=== PATIENT | female | born 1995 | race Hispanic/Latino ===

== ENCOUNTER 2020-07-11 01:44 | Emergency (ER) | payer OTHER, SELFPAY ==
[2020-07-11 01:55] VITALS: BP 131/60; PULSE 74; RESP 16; TEMP 36.6; O2SAT 98; BMI 23.4
[2020-07-11 02:06] LABS: Bilirubin Urine UA NEGATIVE (NEGATIVE); Color Urine UA YELLOW; Glucose Urine UA NEGATIVE (Negative); Ketones Urine UA NEGATIVE (NEGATIVE); Leukocyte Esterase Urine UA 1+ (NEGATIVE); Nitrite Urine UA NEGATIVE (Negative); Occult Blood Urine UA 3+ (Negative); Protein Urine UA NEGATIVE (Negative); Specific Gravity Urine UA <=1.005 (1.000-1.035); Urobilinogen Urine UA 0.2 E.U./dL (0.2)
[2020-07-11 02:07] LABS: pH Urine UA 5.5 (4.5-8.0)
[2020-07-11 02:08] LABS: Appearance Urine UA Slightly Cloudy
--- NOTE | 2020-07-11 02:08 | ED.FEMALEGU ---
HPI - Female Genitourinary General Chief complaint: Urogenital-Female Stated complaint: thinks she has a UTI Time Seen by Provider: 07/11/20 02:08 Source: patient Mode of arrival: Ambulatory Limitations: no limitations History of Present Illness HPI Narrative: 24-year-old woman presents with 3 days of dysuria and urgency as well as frequency. She started to note a small amount of blood this evening. She comes in concerned with possibility of urinary tract infection. She additionally notes that she is having some left-sided deep pelvic pain with sexual activity particularly with deep penetration. It does not bother her otherwise. She currently is on no formal control but reports that she frequently uses plan B . Related Data Previous Rx's Medication Instructions Recorded sulfamethoxazole-trimethoprim 1 tab PO BID #10 tab 07/11/20 [Bactrim DS] Allergies Allergy/AdvReac Type Severity Reaction Status Date / Time No Known Drug Allergies Allergy Verified 07/11/20 02:28 Review of Systems Review of Systems Narrative: Pertinent positive and negative findings as per HPI Remainder of review of systems is otherwise unremarkable for Constitutional: Fevers, chills, weakness ENT: No sore throat, neck pain, ear pain CV: Chest pain, palpitations Respiratory: Cough, wheeze, dyspnea GI: Nausea, vomiting, diarrhea, Patient History tobacco type: cigarettes Substance Use Type: does not use Exam Narrative Exam Narrative: General: Alert appropriate in no acute distress Respiratory: Able to speak in full sentences, no obvious respiratory distress Skin: No obvious rashes, warm and dry Abdomen: No pain with palpation, good bowel tones, no flank pain Neurologic: Grossly intact no obvious asymmetries or abnormalities Psych, appropriate insight and affect, cooperative Initial Vital Signs Initial Vital Signs: Vital Signs Temperature 97.8 F 07/11/20 01:55 Pulse Rate 74 07/11/20 01:55 Respiratory Rate 16 07/11/20 01:55 Blood Pressure 131/60 07/11/20 01:55 Pulse Oximetry 98 07/11/20 01:55 Course Orders Ordered: ED Orders 07/11/20 02:03 Urinalysis Screen (Dip Only) Stat Urine Culture Stat Urine Microscopic Stat Discontinued Medications Trimethoprim/Sulfamethoxazole (Trimeth/Sulfa 160/800 (Ds) Tablet) 1 tab PO NOW ONE Stop: 07/11/20 02:26 Vital Signs Vital signs: Vital Signs - 8 hr 07/11/20 01:55 Temperature 97.8 F Pulse Rate 74 Respiratory Rate 16 Blood Pressure 131/60 Pulse Oximetry 98 MDM - Female Genitourinary Lab Data Attestation: I reviewed the patient's lab results. Labs: Lab Results 07/11/20 Range/Units 02:03 Urine Color Yellow Urine Appearance Slightly cloudy Urine pH 5.5 (4.5-8.0) Ur Specific [place] <=1.005 (1.000-1.035) Urine Protein Negative (Negative) Urine Glucose (UA) Negative (Negative) g/dL Urine Ketones Negative (NEGATIVE) Urine Occult Blood 3+ H (Negative) Urine Nitrate Negative (Negative) Urine Bilirubin Negative (NEGATIVE) Urine Urobilinogen 0.2 (0.2) E.U./dL Ur Leukocyte Esterase 1+ H (NEGATIVE) Urine RBC 1-5/hpf (0-5/HPF) Urine WBC 5-10/hpf H (0-5/HPF) Urine Bacteria Occasional (0-1) (None) Ur Culture Indicated? Specimen cultured Point of Care Testing Test Results Negative Urine Dip Bedside Urine Glucose Negative Bedside Urine Bilirubin - Negative Bedside Urine Ketone - Negative Urine Specific [place] 1.015 Bedside Urine Occult Blood +++ Bedside Urine pH 6 Bedside Urine Protein - Negative Bedside Urine Urobilinogen - Negative Bedside Urine Leukocytes + 70 Esterase MDM Narrative Medical decision making narrative: 24-year-old with 3 days of burning, frequency and mild hematuria. Urinalysis does have some leukocytes as well as red blood cells. Will treat her with Septra b.i.d. for 5 days. She currently is sexually active and not using any form of control and not wanting to be . She notes that she is using Plan B regularly. [place]. She also complains of left-sided ovarian pain with intercourse and deep penetration. Encour[place] Discharge Plan Departure Patient Disposition: Home Clinical Impression: Urinary tract infection Qualifiers: Urinary tract infection type: acute cystitis Hematuria presence: with hematuria Qualified Code(s): N30.01 - Acute cystitis with hematuria Instructions: DI for Urinary Tract Infection (UTI) Activity Restrictions/Additional Instructions: Thank you for coming in today It does look like you have a bladder infection to explain the burning and urinary frequency Regarding the pain in the left side of your pelvis, talking to your Family Practice her OBGYN provider as an outpatient would be most appropriate. They may recommend an ultrasound to see if you do in fact have another ovarian cyst. While you are median without provider, please make sure you discussed control options. Plan B is, by definition, emergency contraception and should not be used regularly. Please consider using condoms. Additional [id number] options include spermicidal jelly to use with the condoms. The Today Sponge is another obqa-ocv-[id number] control method did that you can consider until your able talk to your doctor and find a more reliable method for you. Prescriptions: New sulfamethoxazole-trimethoprim [Bactrim DS] 800-160 mg tablet 1 tab PO BID Qty: 10 RF: 0
[2020-07-11 02:13] LABS: Bacteria Urine Occasional (0-1); RBC Urine 1-5/HPF (0-5/HPF); WBC Urine 5-10/HPF (0-5/HPF)
[2020-07-11 02:14] LABS: Culture Indicated Urine Specimen Cultured
[2020-07-11] MEDS: TRIMETH/SULFA 160/800 (DS) TABLET 1 TAB PO (02:28)
== END 2020-07-11 02:30 | disposition home or self-care (01) ==
PROVIDERS: Emergency Provider Emergency Medicine
DX: N30.01 Acute cystitis with hematuria (principal)
CPT/HCPCS: 81003; 81015; 81025; 87077; 87086; 87186; 99282; 99283

== ENCOUNTER 2021-06-19 19:28 | Emergency (ER) | payer OTHER, SELFPAY ==
[2021-06-19 19:30] VITALS: BP 124/65; PULSE 70; RESP 18; TEMP 36.7; O2SAT 99
--- NOTE | 2021-06-19 22:57 | ED.GENADULT ---
HPI - General Adult General Chief complaint: Upper Respiratory Symptoms Stated complaint: swollen tonsil Time Seen by Provider: 06/19/21 22:51 Source: patient Mode of arrival: Ambulatory History of Present Illness HPI narrative: 25-year-old female who is here for evaluation of painful swallowing and swollen tonsils. A couple months ago she was seen at a outside [place] where [place] stated that they tested her for strep throat. Was negative however they treated her with fluids and steroids and antibiotics and her symptoms improved. She returns today for continued symptoms. She is otherwise healthy. Has not tried anything for the symptoms prior to arrival. No fevers. She does have a cough. Is able to swallow and tolerate her secretions Related Data Previous Rx's Medication Instructions Recorded sulfamethoxazole 800 1 tab PO BID #10 tab 07/11/20 mg-trimethoprim 160 mg tablet (Bactrim DS) Allergies Allergy/AdvReac Type Severity Reaction Status Date / Time No Known Drug Allergies Allergy Verified 07/11/20 02:28 Review of Systems Constitutional Constitutional: Denies fever(s) ENT Ears, Nose, Mouth, and Throat: Reports system reviewed and no additional complaints, except as documented and Reports as per HPI Integumentary/Breasts Skin/Breast: Reports system reviewed and no additional complaints, except as documented Hematologic/Lymphatic On Anticoagulants: No Allergic/Immunologic Allergic/Immunologic: Reports system reviewed and no additional complaints, except as documented Patient History Medical History Healthy adult Social History Smoking Status: Current every day smoker Smoking Status: Current every day smoker tobacco type: cigarettes Substance Use Type: does not use Exam Initial Vital Signs Initial Vital Signs: Vital Signs Temperature 98.1 F 06/19/21 19:30 Pulse Rate 70 06/19/21 19:30 Respiratory Rate 18 06/19/21 19:30 Blood Pressure 124/65 06/19/21 19:30 Pulse Oximetry 99 06/19/21 19:30 Const General: cooperative and comfortable HENMT Head: normal to inspection and normocephalic Mouth: oral mucosae normal and moist mucous membranes Teeth and gingiva: dentition normal Throat: uvula midline, abnormal tonsil bilaterally erythema and exudates, no peritonsillar masses and no uvular edema Resp Effort & Inspection: normal respiratory effort Cardio Rate: regular rate Neuro General: patient alert, patient awake and moves all extremities Extrem General: normal to inspection and capillary refill normal Psych Appearance: grossly normal and well kempt Course Orders Ordered: Discontinued Medications Dexamethasone (Dexamethasone 4 Mg Tablet) 12 mg PO NOW ONE Stop: 06/19/21 22:58 Last Admin: 06/19/21 23:02 Dose: 12 mg Documented by: JAELYN Vital Signs Vital signs: Vital Signs - 8 hr 06/19/21 23:22 Pulse Rate 70 Respiratory Rate 16 Blood Pressure 125/65 Pulse Oximetry 99 Medical Decision Making Lab Data Labs: Point of Care Testing Rapid Strep A Negative Point of care testing: Point of Care Testing Rapid Strep A Negative MDM Narrative Medical decision making narrative: Rapid strep was negative. Throat culture was pending at the time of discharge. No indication for antibiotics. Was given a dose of steroids to try to help with her symptoms. Had a discussion with her regarding her symptoms. Informed her that if she continues to have issues with pharyngitis that a referral for her to see ENT would be warranted however this would place by her primary provider. She was given return precautions and follow-up instructions. She expressed understanding and agreement. Discharge Plan Departure Patient Disposition: Home Clinical Impression: Pharyngitis Instructions: Sore Throat Activity Restrictions/Additional Instructions: Your rapid strep today was negative. There was a throat culture that was drawn and will take couple days to result. We will contact you we need to start any antibiotics. I do recommend you talk with your medical department especially if your symptoms continue. Return to the emergency department for any new symptoms. Prescriptions: No Action sulfamethoxazole-trimethoprim [Bactrim DS] 800-160 mg tablet 1 tab PO BID Qty: 10 0RF
[2021-06-19] MEDS: dexAMETHasone 4 MG TABLET 12 MG PO (23:02)
[2021-06-19 23:22] VITALS: BP 125/65; PULSE 70; RESP 16; O2SAT 99
== END 2021-06-19 23:22 | disposition home or self-care (01) ==
PROVIDERS: Emergency Provider Emergency Medicine
DX: J02.9 Acute pharyngitis, unspecified (principal); F17.210 Nicotine dependence, cigarettes, uncomplicated
CPT/HCPCS: 87070; 87880; 99283

== ENCOUNTER 2021-07-03 01:01 | Emergency (ER) | payer OTHER, SELFPAY ==
[2021-07-03 01:11] VITALS: BP 142/87; PULSE 87; RESP 16; TEMP 36.8; O2SAT 99; BMI 24.2
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
[2021-07-03] MEDS: CYCLOBENZAPRINE 10 MG PREPACK 1 BOTTLE MISC (01:35)
[2021-07-03] MEDS: KETOROLAC 30 MG/ML VIAL IM (01:35)
== END 2021-07-03 01:56 | disposition home or self-care (01) ==
PROVIDERS: Emergency Provider Emergency Medicine
DX: S39.012A Strain of muscle, fascia and tendon of lower back, initial encounter (principal); F17.210 Nicotine dependence, cigarettes, uncomplicated; V89.2XXA Person injured in unspecified motor-vehicle accident, traffic, initial encounter
CPT/HCPCS: 96372; 99283; J1885

== ENCOUNTER 2021-08-07 11:01 | Emergency (ER) | payer OTHER, SELFPAY ==
[2021-08-07 11:43] VITALS: BP 116/73; PULSE 70; RESP 18; TEMP 37; O2SAT 99; BMI 24.2
[2021-08-07 14:10] VITALS: PULSE 68; O2SAT 97
[2021-08-07 14:13] VITALS: BP 129/86; PULSE 68; RESP 18; TEMP 36.7; O2SAT 98
[2021-08-07 14:30] VITALS: PULSE 70; O2SAT 97
--- NOTE | 2021-08-07 14:42 | DI.US.S_ITS ---
PROCEDURE: US PELVIC COMPLETE INDICATIONS: PAIN TECHNIQUE: Real-time scanning was performed of the pelvic organs, with image documentation. Additional endovaginal scanning was necessary due to incomplete visualization of the adnexal and endometrial structures by transabdominal scanning. COMPARISON: None. FINDINGS: Uterus: Uterus is anteverted and normal in size at 7.0 x 3.3 x 4.1 cm. The myometrium is homogeneous. The endometrium measures 3 mm combined thickness. Ovaries: The right ovary measures 1.7 x 1.1 x 2.2 cm and the left ovary measures 2.9 x 1.9 x 2.6 cm cm. Incidental note of a 1.5 cm dominant left ovarian follicle. The ovaries have a normal sonographic appearance. No adnexal masses are seen. Other: No pathologic free abdominal or pelvic fluid. IMPRESSION: Pelvic ultrasound without acute sonographic abnormalities. We strive to produce accurate, complete, and clear reports of imaging services. To assist us in improving patient care, this report was composed using standard report templates and voice recognition software. Therefore, it may contain abnormal punctuation, insertions and/or omissions. Occasional wrong-word or sound-alike substitutions may occur. Though we review the report and make efforts to correct it, we do recommend that the report be read carefully in proper context to recognize any text inaccuracies. Dictated by: Zach Acosta M.D. on 08/07/2021 at 15:19 Approved by: Zach Acosta M.D. on 08/07/2021 at 15:21
--- NOTE | 2021-08-07 14:59 | ED_ITS ---
HPI - Abdominal Pain <MYRTLE Herman - Last Filed: 08/07/21 16:39> General Chief Complaint: Abdominal Pain Stated Complaint: lower left abd pain, spread to overall Time Seen by Provider: 08/07/21 14:26 Source: patient Mode of arrival: Ambulatory History of Present Illness HPI narrative: 26-year-old female who is sexually active presents to the emergency department complaining pelvic pain for 1 week. She endorses dyspareunia, feeling of stool in her rectum after defecation, bilateral pelvic pain but worse over the left. She denies any fever, endorses nausea without vomiting, states last menstrual period was end of June 2021, and she endorses this pain is similar to the last time she had this pain in 2019. On chart review it appears that she had a UTI at that time which grew out E coli and it was resistant to Bactrim and her antibiotic was changed after starting on Bactrim. Patient denies any stool changes, states she is having normal daily BMs, denies dysuria but states she has pelvic pain when she defecates and to palpation. Related Data Previous Rx's Medication Instructions Recorded cefdinir 300 mg capsule 300 mg PO BID 7 Days #14 cap 08/07/21 Allergies Allergy/AdvReac Type Severity Reaction Status Date / Time No Known Drug Allergies Allergy Verified 07/11/20 02:28 Patient History <MYRTLE Herman - Last Filed: 08/07/21 16:39> Medical History Healthy adult Social History Smoking Status: Current every day smoker Smoking Status: Current every day smoker tobacco type: cigarettes Substance Use Type: does not use Exam <MYRTLE Herman - Last Filed: 08/07/21 16:39> Initial Vital Signs Initial Vital Signs: Vital Signs Temperature 98.6 F 08/07/21 11:43 Pulse Rate 70 08/07/21 11:43 Respiratory Rate 18 08/07/21 11:43 Blood Pressure 116/73 08/07/21 11:43 Pulse Oximetry 99 08/07/21 11:43 <Pamela Jensen DO - Last Filed: 08/07/21 20:04> Initial Vital Signs Initial Vital Signs: Vital Signs Temperature 98.6 F 08/07/21 11:43 Pulse Rate 70 08/07/21 11:43 Respiratory Rate 18 08/07/21 11:43 Blood Pressure 116/73 08/07/21 11:43 Pulse Oximetry 99 08/07/21 11:43 Course <MYRTLE Herman - Last Filed: 08/07/21 16:39> Orders Ordered: ED Orders 08/07/21 14:42 US pelvic complete Stat 08/07/21 15:17 Complete Blood Count AUTO DIFF Stat Comprehensive Metabolic Panel Stat Lipase Stat 08/07/21 16:07 US abdomen limited Stat Discontinued Medications Cefdinir (Cefdinir 300 Mg Capsule) 300 mg PO NOW ONE Stop: 08/07/21 15:00 Last Admin: 08/07/21 15:15 Dose: 300 mg Documented by: FELIX Ketorolac Tromethamine (Ketorolac 30 Mg/Ml Vial) 15 mg IV NOW ONE Stop: 08/07/21 15:08 Last Admin: 08/07/21 15:14 Dose: Not Given Documented by: NICOLASA Ketorolac Tromethamine (Ketorolac 30 Mg/Ml Vial) 15 mg IM NOW ONE Stop: 08/07/21 15:15 Last Admin: 08/07/21 15:17 Dose: 15 mg Documented by: FELIX Vital Signs Vital signs: Vital Signs - 8 hr 08/07/21 14:10 08/07/21 14:13 08/07/21 14:30 Temperature 98.0 F Pulse Rate 68 68 70 Respiratory Rate 18 Blood Pressure 129/86 Pulse Oximetry 97 98 97 08/07/21 18:04 Temperature Pulse Rate 68 Respiratory Rate 18 Blood Pressure 128/77 Pulse Oximetry 98 <Pamela Jensen DO - Last Filed: 08/07/21 20:04> Orders Ordered: ED Orders 08/07/21 14:42 US pelvic complete Stat 08/07/21 15:17 Complete Blood Count AUTO DIFF Stat Comprehensive Metabolic Panel Stat Lipase Stat 08/07/21 16:07 US abdomen limited Stat Discontinued Medications Cefdinir (Cefdinir 300 Mg Capsule) 300 mg PO NOW ONE Stop: 08/07/21 15:00 Last Admin: 08/07/21 15:15 Dose: 300 mg Documented by: FELIX Ketorolac Tromethamine (Ketorolac 30 Mg/Ml Vial) 15 mg IV NOW ONE Stop: 08/07/21 15:08 Last Admin: 08/07/21 15:14 Dose: Not Given Documented by: NICOLASA Ketorolac Tromethamine (Ketorolac 30 Mg/Ml Vial) 15 mg IM NOW ONE Stop: 08/07/21 15:15 Last Admin: 08/07/21 15:17 Dose: 15 mg Documented by: FELIX Vital Signs Vital signs: Vital Signs - 8 hr 08/07/21 14:10 08/07/21 14:13 08/07/21 14:30 Temperature 98.0 F Pulse Rate 68 68 70 Respiratory Rate 18 Blood Pressure 129/86 Pulse Oximetry 97 98 97 08/07/21 18:04 Temperature Pulse Rate 68 Respiratory Rate 18 Blood Pressure 128/77 Pulse Oximetry 98 MDM - Abdominal Pain <Bella Mcdermott [facility] - Last Filed: 08/07/21 16:39> Lab Data Result diagrams: 08/07/21 15:17 08/07/21 15:17 Labs: Lab Results 08/07/21 08/07/21 Range/Units 15:17 15:17 WBC 5.5 (4.5-11.0) X10^3/uL RBC 4.21 (4.0-5.2) X10^6/uL Hgb 13.1 (12.0-16.0) g/dL Hct 38.5 (36-46) % MCV 91.6 (80-100) fL MCH 31.2 (26-34) PG MCHC 34.1 (30-36) % RDW 12.5 (11.6-14.8) % Plt Count 255 (150-400) X10^3/uL Neut % (Auto) 55.6 (50-75) % Lymph % (Auto) 35.6 (25-40) % [place] % (Auto) 7.7 (3-14) % Eos % (Auto) 0.8 L (2-4) % Baso % (Auto) 0.3 (0-2) % Neut # (Auto) 3100 (4039-8228) /uL Lymph # (Auto) 2000 (1982-9108) /uL [place] # (Auto) 400 (0-900) /uL Eos # (Auto) 0 (0-450) /uL Baso # (Auto) 0 (0-100) /uL Sodium 138 (137-145) mmol/L Potassium 3.9 (3.4-5.1) mmol/L Chloride 106 (98-107) mmol/L Carbon Dioxide 26 (22-32) mmol/L BUN 7 (7-17) mg/dL Creatinine 0.65 (0.52-1.04) mg/dL Estimated GFR > 60.0 (>60) mL/min BUN/Creatinine Ratio 10.8 (6-22) Glucose 86 (70-100) mg/dL Calcium 9.3 (8.4-10.2) mg/dL Total Bilirubin 0.7 (0.2-1.3) mg/dL AST 39 H (14-36) IU/L ALT 37 H (<35) IU/L Alkaline Phosphatase 60 (38-126) U/L Total Protein 7.3 (6.3-8.2) g/dL Albumin 4.5 (3.5-5.0) g/dL Globulin 2.8 (1.7-4.1) g/dL Albumin/Globulin Ratio 1.6 (1.0-2.8) Lipase 155 (23-300) U/L Point of care testing: Point of Care Testing Test Results Negative Urine Dip Bedside Urine Glucose Negative Bedside Urine Bilirubin - Negative Bedside Urine Ketone - Negative Urine Specific [place] 1.030 Bedside Urine Occult Blood - Negative Bedside Urine pH 6.0 Bedside Urine Protein - Negative Bedside Urine Urobilinogen - Negative Bedside Urine Nitrite - Negative Bedside Urine Leukocytes - Negative Esterase Imaging Data US - 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 US PELVIC COMPLETE ? INDICATIONS:? PAIN ? TECHNIQUE:? Real-time scanning was performed of the pelvic organs, with image docu mentation.? Additional endovaginal scanning was necessary due to incomplete visualization of the adnexal and endometrial structures by transabdominal scanning.? ? COMPARISON:? None. ? FINDINGS:? ?? Uterus:? Uterus is anteverted and normal in size at 7.0 x 3.3 x 4.1 cm. The myometrium is homogeneous. ? The endometrium measures 3 mm combined thickness.? ? Ovaries:? The right ovary measures 1.7 x 1.1 x 2.2 cm and the left ovary measures 2.9 x 1.9 x 2.6 cm cm.? Incidental note of a 1.5 cm dominant left ovarian follicle.? The ovaries have a normal sonographic appearance.? No adnexal masses are seen. ? Other:? No pathologic free abdominal or pelvic fluid. ? ? IMPRESSION:? Pelvic ultrasound without acute sonographic abnormalities. ? We strive to produce accurate, complete, and clear reports of imaging services. To assist us in improving patient care, this report was composed using standard report templates and voice recognition software. Therefore, it may contain abnormal punctuation, insertions and/or omissions. Occasional wrong-word or sound-alike substitutions may occur. Though we review the report and make efforts to correct it, we do recommend that the report be read carefully in proper context to recognize any text inaccuracies. ? ? Dictated by: Zach Acosta M.D. on 08/07/2021 at 15:19 ? ? Approved by: Zach Acosta M.D. on 08/07/2021 at 15:21 ? MDM Narrative Medical decision making narrative: 26-year-old female presents to the emergency department for left lower quadrant/pelvic pain for 1 week. She complains of dyspareunia, lower left quadrant/pelvic tenderness over left ovary and pain with defecation. Last menstrual period end of June, was negative today, lab work was overall unremarkable without any leukocytosis, electrolyte abnormality, her AST and ALT were mildly elevated at 39 and 37 respectively, lipase of 155, UA today is negative for leukocytes, bacteria, blood or nitrites. Pelvic ultrasound completed for tenderness over lower left ovary which showed no acute sonographic abnormalities, no free abdominal or pelvic fluid, no adnexal mass, incidentally a 1.5 cm left ovarian follicle was found. This is most likely the cause of her left pelvic pain. Right upper quadrant ultrasound was completed after noticing her elevated AST and ALT however she was non tender on exam. There was no biliary dilation, common bile duct measures 4 mm, sonographic Denney sign is negative with a normal sonographic appearance, the gallbladder wall is not thickened and measures 3 mm or less. Encouraged patient to follow-up with her primary care provider regarding her pain to see if it improves over the next few days on a low-fat diet. Differential diagnosis include ovarian torsion, ectopic , pelvic inflammatory disease, appendicitis, ruptured ovarian cyst, ovarian torsion, endometriosis, diverticulitis, vaginitis, cystitis. It does not appear to be any acute surgical pathology on workup today. Patient understands to follow-up with her primary care provider for her symptoms. Strict return precautions were discussed. Patient is appropriate and amenable to discharge home. Vital signs are stable on repeat examination is unremarkable. Patient has been informed of results. Patient has been given strict return to ER precautions for any new or worsening symptoms. Patient understands to follow up closely with outpatient providers as instructed. Patient understands plan and agrees to discharge home. All questions and concerns answered at this time. <Pamela Jensen, - Last Filed: 08/07/21 20:04> Lab Data Labs: Lab Results 08/07/21 08/07/21 Range/Units 15:17 15:17 WBC 5.5 (4.5-11.0) X10^3/uL RBC 4.21 (4.0-5.2) X10^6/uL Hgb 13.1 (12.0-16.0) g/dL Hct 38.5 (36-46) % MCV 91.6 (80-100) fL MCH 31.2 (26-34) PG MCHC 34.1 (30-36) % RDW 12.5 (11.6-14.8) % Plt Count 255 (150-400) X10^3/uL Neut % (Auto) 55.6 (50-75) % Lymph % (Auto) 35.6 (25-40) % [place] % (Auto) 7.7 (3-14) % Eos % (Auto) 0.8 L (2-4) % Baso % (Auto) 0.3 (0-2) % Neut # (Auto) 3100 (0147-5806) /uL Lymph # (Auto) 2000 (0578-1408) /uL [place] # (Auto) 400 (0-900) /uL Eos # (Auto) 0 (0-450) /uL Baso # (Auto) 0 (0-100) /uL Sodium 138 (137-145) mmol/L Potassium 3.9 (3.4-5.1) mmol/L Chloride 106 (98-107) mmol/L Carbon Dioxide 26 (22-32) mmol/L BUN 7 (7-17) mg/dL Creatinine 0.65 (0.52-1.04) mg/dL Estimated GFR > 60.0 (>60) mL/min BUN/Creatinine Ratio 10.8 (6-22) Glucose 86 (70-100) mg/dL Calcium 9.3 (8.4-10.2) mg/dL Total Bilirubin 0.7 (0.2-1.3) mg/dL AST 39 H (14-36) IU/L ALT 37 H (<35) IU/L Alkaline Phosphatase 60 (38-126) U/L Total Protein 7.3 (6.3-8.2) g/dL Albumin 4.5 (3.5-5.0) g/dL Globulin 2.8 (1.7-4.1) g/dL Albumin/Globulin Ratio 1.6 (1.0-2.8) Lipase 155 (23-300) U/L Point of care testing: Point of Care Testing Test Results Negative Urine Dip Bedside Urine Glucose Negative Bedside Urine Bilirubin - Negative Bedside Urine Ketone - Negative Urine Specific [place] 1.030 Bedside Urine Occult Blood - Negative Bedside Urine pH 6.0 Bedside Urine Protein - Negative Bedside Urine Urobilinogen - Negative Bedside Urine Nitrite - Negative Bedside Urine Leukocytes - Negative Esterase Discharge Plan Departure Patient Disposition: Home Clinical Impression: Pelvic pain Instructions: DI for Ovarian Cyst Activity Restrictions/Additional Instructions: *You have been diagnosed with acute cystitis, and pelvic pain which is most likely related to ovarian cysts which are currently quite small the one you have on the left is larger than the rest. 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 If you eat a high fat meal and notice pain in your right upper abdomen you may correlate that with likely gallbladder pain however if there is no pain after you eat fatty food this is not as much of a concern. Please follow-up with your primary care provider in the next week for recheck of your symptoms. If you develop any worsening abdominal pain, shortness of breath, chest pain, fever, or are unable to keep anything down please return to the emergency department. *What to do: *Please continue to take your regular medications as directed. [x ] New medication prescriptions sent to your pharmacy: [ [facility]] [ ] New medication written as a paper prescription [ ] No new medications given *Please follow up with your primary care provider in 2-3 days, call for an appointment. Let them know you were seen in the Emergency Department and that we ask that you be seen in follow up. We will electronically transmit a record of today's note if your PCP is in our system *If you do not have a primary care provider please contact the [facility] Resource line at [phone]. They will ask some questions about your medical history and help get you set up with a doctor in the community. *Return to Emergency Department if you should have any new, worsening or concerning symptoms, such as [fever greater than 101F, chills, worsening pain, persistent vomiting or other bothersome symptoms] Prescriptions: New cefdinir 300 mg capsule 300 mg PO BID 7 Days Qty: 14 0RF Discontinued sulfamethoxazole-trimethoprim [Bactrim DS] 800-160 mg tablet 1 tab PO BID Qty: 10 0RF Referrals: Shmuel Benitez MD [Non-Staff] - 3-5 days Stand Alone Forms: Work Release Note <Pamela Jnesen DO - Last Filed: 08/07/21 20:04> Cosign ED Attending Victorinoature Attestation: I was immediately available in the department for consultation. Documentation has been reviewed. I agree with assessment and plan.
[2021-08-07] MEDS: CEFDINIR 300 MG CAPSULE PO (15:15)
[2021-08-07] MEDS: KETOROLAC 30 MG/ML VIAL 15 MG IM (15:17)
[2021-08-07 15:29] LABS: Add Manual Diff / Slide Review NO; Basophils Absolute Auto 0 /uL (0-100); Basophils Percent Auto 0.3 % (0-2); Eosinophils Absolute Auto 0 /uL (0-450); Eosinophils Percent Auto 0.8 % (2-4); Hematocrit 38.5 % (36-46); Hemoglobin 13.1 g/dL (12.0-16.0); Lymphocytes Absolute Auto 2000 /uL (1100-4500); Lymphocytes Percent Auto 35.6 % (25-40); Mean Corpuscular HGB Conc 34.1 % (30-36); Mean Corpuscular Hemoglobin 31.2 PG (26-34); Mean Corpuscular Volume 91.6 fL (80-100); Monocytes Absolute Auto 400 /uL (0-900); Monocytes Percent Auto 7.7 % (3-14); Neutrophils Absolute Auto 3100 /uL (1500-7000); Neutrophils Percent Auto 55.6 % (50-75); Platelet Count 255 X10^3/uL (150-400); Red Blood Cell Count 4.21 X10^6/uL (4.0-5.2); Red Cell Distribution Width 12.5 % (11.6-14.8); White Blood Cell Count 5.5 X10^3/uL (4.5-11.0)
[2021-08-07 15:38] LABS: Alanine Aminotransferase 37 IU/L (<35); Albumin 4.5 g/dL (3.5-5.0); Albumin Globulin Ratio 1.6 (1.0-2.8); Alkaline Phosphatase 60 U/L (38-126); Aspartate Aminotransferase 39 IU/L (14-36); BUN Creatinine Ratio 10.8 (6-22); Bilirubin Total 0.7 mg/dL (0.2-1.3); Blood Urea Nitrogen 7 mg/dL (7-17); Calcium 9.3 mg/dL (8.4-10.2); Carbon Dioxide 26 mmol/L (22-32); Chloride 106 mmol/L (98-107); Estimated Glomerular Filt Rate > 60.0 mL/min (>60); Globulin 2.8 g/dL (1.7-4.1); Glucose 86 mg/dL (70-100); HEMOLYSIS < 15 (0-50); Lipase 155 U/L (23-300); Potassium 3.9 mmol/L (3.4-5.1); Sodium 138 mmol/L (137-145); Total Protein 7.3 g/dL (6.3-8.2)
--- NOTE | 2021-08-07 16:07 | DI.US.S_ITS ---
PROCEDURE: US ABDOMEN LIMITED INDICATIONS: ELEVATED LIVER FUNCTION TESTS TECHNIQUE: Real-time focused scanning was performed of the abdomen, with image documentation. COMPARISON: [facility], US, US PELVIC COMPLETE, 08/07/2021, 14:49. FINDINGS: The liver is normal in size and demonstrates no focal lesions. No findings of gallstones or sludge are seen. The gallbladder wall is not thickened, measuring 3 mm or less. No specific pericholecystic fluid is seen. The sonographic Denney sign is negative. There is no biliary dilatation, the common bile duct measures 4 mm. No significant pancreatic abnormality is seen on these images. No free fluid is seen. IMPRESSION: The gallbladder demonstrates a normal sonographic appearance. No biliary dilatation is seen. No significant liver abnormality is seen by ultrasound. Dictated by: Korey Shepherd M.D. on 08/07/2021 at 15:30 Approved by: Korey Shepherd M.D. on 08/07/2021 at 15:31
[2021-08-07 18:04] VITALS: BP 128/77; PULSE 68; RESP 18; O2SAT 98
--- NOTE | 2021-08-07 18:05 | PC.NURSE ---
Agree with care/documentation by Brady Sherwood
== END 2021-08-07 18:05 | disposition home or self-care (01) ==
PROVIDERS: Emergency Provider Nurse Practitioner Critical Care Medicine
DX: N30.90 Cystitis, unspecified without hematuria (principal); R10.2 Pelvic and perineal pain
CPT/HCPCS: 36415; 76705; 76830; 76856; 80053; 81003; 81025; 83690; 85025; 96372; 99284; J1885

== ENCOUNTER → 2021-09-19 10:13 | Outpatient (CLI) | payer OTHER, SELFPAY ==
[2021-09-19 11:00] LABS: COVID19 -Nasal RAPID Negative (Negative)
== END ==
PROVIDERS: PCP Student in an Organized Health Care Education/Training Program; Visit Provider Family Medicine Sleep Medicine
DX: Z20.822 Contact with and (suspected) exposure to COVID-19 (principal)
CPT/HCPCS: 87635; C9803

== ENCOUNTER 2021-09-20 09:37 | Day surgery (SDC) | payer OTHER, SELFPAY ==
[2021-09-17 14:24] VITALS: BMI 24.2
[2021-09-20] VITALS (8 sets, daily range): BP systolic 113–131; BP diastolic 41–80; PULSE 55–111; RESP 14–20; TEMP 36.4–36.8; O2SAT 98–100; BMI 23.2
--- NOTE | 2021-09-20 | PATH_ITS ---
[facility] Accession Number: [id number] . 01 Material submitted: . tonsil - RIGHT TONSIL . 02 Diagnosis: Right Tonsil, Tonsillectomy: Tonsil with reactive lymphoid hyperplasia and mild active inflammation. No evidence of neoplasm. MRV 09/27/2021 1418 Local . 02 Electronically signed: . Arron Mckinney MD, PhD, Pathologist NPI- [id number] . 01 Gross description: . The specimen is received in formalin, labeled with the patient's name, and right tonsil is composed of a fragment of white-askew to red-brown soft tissue which measures 3.0 x 2.5 x 2.0 cm. Sectioning reveals a diffuse askew-white firm cut surface. Rotor Balancer sections are submitted in cassette A1. ([id number]) /MRV 09/26/2021 1100 Local . 02 Pathologist provided ICD-10: J38.01, J36 . 02 CPT . 200409 Specimen Comment: A courtesy copy of this report has been sent to [phone] Performed at: 01 [facility] [address] [place] [address], [place], [place] [id number] MD Tommy Roberts MD Phone: [phone] Performed at: [facility] [address] [place], [place] [id number] MD Bella Brambila MD Phone: [phone]
--- NOTE | 2021-09-20 10:54 | SUR.OPER ---
Supine on padded OR bed, head on pillow, arms padded and tucked at sides, legs uncrossed, safety belt at thigh, tape over blanket over lower legs .
[2021-09-20] MEDS: LACTATED RINGERS 1,000 ML 42 ML IV (11:09)
--- NOTE | 2021-09-20 11:15 | PM.PREOP ---
Pre-operative Note Interval Note History & Physical reviewed/Exam performed by Physician: Yes Changes to H&P: No
--- NOTE | 2021-09-20 11:15 | PM.HP.1 ---
History of Present Illness History of Present Illness Date Patient Seen: 09/20/21 Time Patient Seen: 11:16 Chief complaint: Chronic tonsillitis Narrative: 26-year-old female last seen in clinic 07/18/2021 with a chronic history of tonsillar hypertrophy, recurrent throat infections and tonsil stones. Incompletely managed with medical therapy, requested to proceed with tonsillectomy and possible adenoidectomy. No interval health changes, no recent cough, cold, or fever. Patient History Medical History Enlarged tonsils Healthy adult Throat infection Tonsil stone Tonsillar hypertrophy Family & Social History Social History: household members friend(s) Tobacco & Substance use: Smoking Status Never smoker alcohol intake current alcohol intake frequency holiday/special occasion Substance Use Type does not use Meds Home Medications and Allergies Home Medications Medication Instructions Recorded Confirmed Type norethindrone 1.5 mg-ethinyl 1 tab PO DAILY 09/20/21 09/20/21 History estradiol 30 mcg(21)/iron 75 mg(7) tablet (Microgestin Fe 1.5/30 (28)) Allergies Allergy/AdvReac Type Severity Reaction Status Date / Time No Known Drug Allergies Allergy Verified 09/20/21 10:50 Review of Systems Review of Systems Narrative: Negative except as listed in the HPI Exam Vital Signs (past 8 hours): - 09/20/21 10:52 Temperature 97.9 F Pulse Rate 71 Respiratory Rate 14 Blood Pressure 121/77 Pulse Oximetry 100 Oxygen Delivery Method Room Air Narrative Exam Narrative: Well-developed well-nourished female in no acute distress. Tonsils 3 to 4+, heart regular rate and rhythm without murmur, lungs clear to auscultation bilaterally Assessment & Plan Assessment & Plan narrative: Assessment: Chronic tonsillitis, throat pain, upper airway obstruction secondary to tonsillar, possible adenoid hypertrophy Plan: Following discussion of the material risks benefits complications and alternatives, the patient elected to proceed with tonsillectomy and possible adenoidectomy. Time Spent With Patient Critical Care time: I spent a total of [] minutes of critical care time on this patient's care today; this time is exclusive of procedural time.
--- NOTE | 2021-09-20 11:18 | P.OP_ITS ---
Operative Date/Time/Diagnoses Date of procedure: 09/20/21 Time of procedure: 12:11 Pre-op diagnosis: Chronic tonsillitis, throat pain, upper airway obstruction secondary to tonsillar, possible adenoid hypertrophy Post-op diagnosis: same (Possible h/o RIGHT peritonsillar abscess) Procedure & Clinicians Procedure: Adenotonsillectomy Same procedure as scheduled: Yes Indications: 26-year-old female with the above diagnoses incompletely managed with medical therapy presents for the above procedure. Following discussion of the material risks benefits complications and alternatives, the patient elected to proceed. Surgeon: Ramesh Arriaga Click Yes if Unassisted: Yes Anesthesia Type: General and Local Operative Notes Findings: Intact palate, single uvula, 3+ tonsils but extensive scarring RIGHT superior c/w possible prior peritonsillar abscess, 1-2+ adenoids Specimen(s): other (RIGHT tonsil) Estimated Blood Loss (mL): 30 Procedure in detail: Following identification and confirmation of consent the patient was brought to the operating room suite and placed in the supine position. General endo tracheal anesthesia was administered. A head wrap, shoulder roll, and mouth gag were placed and a red rubber catheter was inserted through the nostril and out the mouth to retract the soft palate. Partially obstructive adenoid tissue was ablated with suction electrocautery on a setting of 40, without injury to the eustachian tube orifices or choana. The left tonsil was retracted medially and suction electrocautery on a setting of 30 was used to dissect the tonsil in a subcapsular plane, followed by hemostasis with the same. 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 The tonsillar fossae were superficially infiltrated bilaterally with a 1:1 mixture of 1% lidocaine 1 100,000 epinephrine and 0.25% Marcaine. Mouth gag and rubber catheter were removed and the patient was extubated in the operating room and taken to the recovery room in stable condition without known complication. Complications: none Post-operative Condition: stable Disposition: same day surgery Plan for aftercare: Push fluids, alternate Tylenol and Advil every 3 hours for baseline pain control, oxycodone for breakthrough pain. Soft diet 2 full weeks, no heavy lifting or straining 2 weeks.
[2021-09-20] MEDS: LIDOCAINE 1% W/EPI 20 ML INJ (12:03)
[2021-09-20] MEDS: BUPIVACAINE 0.25% (PF) VIAL 30 ML INJ (12:04)
[2021-09-20] MEDS: ONDANSETRON 4 MG/2 ML INJ IV (12:24)
[2021-09-20] MEDS: fentaNYL 250 MCG/5 ML INJ IV (12:25)
--- NOTE | 2021-09-20 12:51 | SUR.PHASEI ---
09/20/21-7960 Dr. An consulted-to write for oral pain medications. pain down to 7/10-feeling better.
[2021-09-20] MEDS: OXYCODONE IR 5 MG TABLET PO (13:10)
[2021-09-20] MEDS: ACETAMINOPHEN 325 MG TABLET 650 MG PO (13:11)
== END 2021-09-20 13:50 | disposition home or self-care (01) ==
PROVIDERS: PCP Student in an Organized Health Care Education/Training Program; Referring Provider Otolaryngology; Visit Provider Otolaryngology
PROC: (CPT 42821; principal; 2021-09-20 10:45)
DX: J35.01 Chronic tonsillitis (principal); J98.8 Other specified respiratory disorders
CPT/HCPCS: 42821; 81025; J1100; J2405; J2704; J3010

== ENCOUNTER 2021-09-22 13:20 | Emergency (ER) | payer OTHER, SELFPAY ==
[2021-09-22 13:25] VITALS: BP 132/82; PULSE 78; RESP 18; TEMP 36.4; O2SAT 99
[2021-09-22] MEDS: SODIUM CHLORIDE 0.9% 1,000 ML 1000 ML IV ×2 (14:18→15:31)
[2021-09-22 14:23] LABS: Add Manual Diff / Slide Review NO; Basophils Absolute Auto 0 /uL (0-100); Basophils Percent Auto 0.1 % (0-2); Eosinophils Absolute Auto 0 /uL (0-450); Hematocrit 41.8 % (36-46); Hemoglobin 14.1 g/dL (12.0-16.0); Lymphocytes Absolute Auto 1800 /uL (1100-4500); Lymphocytes Percent Auto 15.4 % (25-40); Mean Corpuscular HGB Conc 33.6 % (30-36); Mean Corpuscular Hemoglobin 31.1 PG (26-34); Mean Corpuscular Volume 92.6 fL (80-100); Monocytes Absolute Auto 900 /uL (0-900); Monocytes Percent Auto 7.3 % (3-14); Neutrophils Absolute Auto 9000 /uL (1500-7000); Neutrophils Percent Auto 77.2 % (50-75); Platelet Count 245 X10^3/uL (150-400); Red Blood Cell Count 4.52 X10^6/uL (4.0-5.2); Red Cell Distribution Width 12.5 % (11.6-14.8); White Blood Cell Count 11.7 X10^3/uL (4.5-11.0)
[2021-09-22 14:43] LABS: Alanine Aminotransferase 27 IU/L (<35); Albumin Globulin Ratio 1.4 (1.0-2.8); Alkaline Phosphatase 65 U/L (38-126); Aspartate Aminotransferase 28 IU/L (14-36); BUN Creatinine Ratio 14.6 (6-22); Bilirubin Total 0.9 mg/dL (0.2-1.3); Blood Urea Nitrogen 12 mg/dL (7-17); Calcium 9.1 mg/dL (8.4-10.2); Carbon Dioxide 27 mmol/L (22-32); Chloride 103 mmol/L (98-107); Estimated Glomerular Filt Rate > 60.0 mL/min (>60); Globulin 3.7 g/dL (1.7-4.1); Glucose 85 mg/dL (70-100); HEMOLYSIS 23 (0-50); Lipase 88 U/L (23-300); Potassium 3.5 mmol/L (3.4-5.1); Sodium 138 mmol/L (137-145); Total Protein 8.7 g/dL (6.3-8.2)
[2021-09-22] MEDS: dexAMETHasone 20 MG in SODIUM CHLORIDE 0.9% 50 ML 208 ML IV (14:46)
[2021-09-22] MEDS: KETOROLAC 30 MG/ML VIAL 15 MG IV (14:56)
--- NOTE | 2021-09-22 14:57 | ED_ITS ---
HPI - Recheck/Abnormal Lab/Rx <Blane Singh PA-C - Last Filed: 09/22/21 20:05> General Chief Complaint: Recheck/Abnormal Lab/Rx Stated Complaint: complications from tonsilectomy Time Seen by Provider: 09/22/21 14:07 Source: patient Mode of arrival: Ambulatory History of Present Illness HPI narrative: Patient is a 26-year-old female presenting to the emergency department today for an evaluation difficulty swallowing following tonsillectomy. Patient explains that she had a tonsillectomy performed on , noting that she has experienced difficulty swallowing an intermittent fever since that time. She explains that she has been taking Tylenol and oxycodone for her pain and states she has also experienced constipation following the surgery. She states that she has had mild abdominal pain associated with her constipation. She was recommended come to the emergency department by on-call provider and presents for fluids and steroid treatment. She denies cough, shortness of breath, chest pain, diarrhea, hematochezia, hematemesis vomiting nausea, earache, or any other concerning symptoms. No further concerns were voiced at this time. Related Data Home Medications Medication Instructions Recorded Confirmed norethindrone 1.5 mg-ethinyl 1 tab PO DAILY 09/20/21 09/20/21 estradiol 30 mcg(21)/iron 75 mg(7) tablet (Microgestin Fe 1.5/30 (28)) Previous Rx's Medication Instructions Recorded dexamethasone 4 mg tablet 4 mg PO BID #10 tab 09/22/21 (Decadron) docusate sodium 100 mg capsule 100 mg PO DAILY #10 cap 09/22/21 sennosides 8.6 mg capsule (senna) 8.6 mg PO DAILY PRN #10 cap 09/22/21 Allergies Allergy/AdvReac Type Severity Reaction Status Date / Time No Known Drug Allergies Allergy Verified 09/22/21 13:27 Review of Systems <Blane Singh PA-C - Last Filed: 09/22/21 20:05> Constitutional Constitutional: Denies chills, Denies fatigue, Reports fever(s), Denies frequent falls, Denies lethargy and Denies weakness Eyes Eyes: Denies loss of vision ENT Ears, Nose, Mouth, and Throat: Denies change in voice, Reports dysphagia, Denies dizziness, Denies neck pain, Denies sore throat and Reports other (Pain at tonsillectomy site) Cardiovascular Cardiovascular: Denies chest pain, Denies irregular heart rhythm, Denies lightheadedness, Denies palpitations, Denies dyspnea, Denies dyspnea on exertion and Denies orthopnea Respiratory Respiratory: Denies cough, Denies dyspnea, Denies dyspnea on exertion and Denies wheezing Gastrointestinal Gastrointestinal: Reports abdominal pain, Denies change in bowel habits, Reports constipation, Reports dysphagia, Denies diarrhea, Denies nausea and Denies vomiting Genitourinary Genitourinary: Denies hematuria, Denies flank pain, Denies urinary incontinence and Denies urinary urgency Musculoskeletal Musculoskeletal: Denies back pain, Denies muscle weakness, Denies neck pain, Denies numbness and Denies tingling Integumentary/Breasts Skin/Breast: Denies pruritus, Denies erythema, Denies rash and Denies wounds Neurologic Neurologic: Denies behavioral changes, Denies confusion, Denies dizziness, Denies frequent falls, Denies loss of vision, Denies numbness, Denies tingling and Denies weakness Psychiatric Psychiatric: Denies behavioral changes and Denies confusion Endocrine Endocrine: Denies fatigue and Denies palpitations Allergic/Immunologic Allergic/Immunologic: Denies wheezing Patient History <Blane Singh PA-C - Last Filed: 09/22/21 20:05> Medical History Enlarged tonsils Healthy adult Throat infection Tonsil stone Tonsillar hypertrophy Social History household members: friend(s) Smoking Status: Never smoker alcohol intake: current Smoking Status: Never smoker tobacco type: cigarettes alcohol intake frequency: holidays/special occasions only Substance Use Type: does not use Exam <Blane Singh PA-C - Last Filed: 09/22/21 20:05> Narrative Exam Narrative: GENERAL: 26 year old patient appears stated age. Well-developed patient, in mild distress. HEAD: Atraumatic. Normocephalic. EYES: Pupils equal round and reactive. Extraocular motions intact. No scleral icterus. No injection or drainage. ENT: Nose without bleeding, purulent drainage. Airway patent. Postsurgical swelling noted at the tonsillectomy site with no noticeable bleeding appreciated. Patient tolerating secretions. NECK: Trachea midline. Non tender CARDIOVASCULAR: Regular rate and rhythm without murmurs, gallops, or rubs. RESPIRATORY: Clear to auscultation. Breath sounds equal bilaterally. No wheezes, rales, or rhonchi. GASTROINTESTINAL: Abdomen soft, nondistended. Tenderness to palpation appreciated in the right lower and left lower quadrants of the abdomen. No masses or fluid wave appreciated. No hepatomegaly or splenomegaly. EXTREMITIES: No edema or joint tenderness. BACK: Nontender without deformity or crepitance. No flank tenderness. NEURO: AOx3. SKIN: No rash or erythema of visible areas Initial Vital Signs Initial Vital Signs: Vital Signs Temperature 97.5 F L 09/22/21 13:25 Pulse Rate 78 09/22/21 13:25 Respiratory Rate 18 09/22/21 13:25 Blood Pressure 132/82 09/22/21 13:25 Pulse Oximetry 99 09/22/21 13:25 Course <Blane Singh PA-C - Last Filed: 09/22/21 20:05> Course Course Narrative: 2 L of IV normal saline, 20 mg of IV Decadron, 15 mg of IV Toradol administered. On re-evaluation patient states she is feeling much better. Orders Ordered: Discontinued Medications Sodium Chloride (Normal Saline 0.9%) 1,000 mls @ 1,000 mls/hr IV BOLUS ONE Stop: 09/22/21 14:42 Last Infusion: 09/22/21 15:31 Dose: 0 mls/hr Documented by: Admin: 09/22/21 14:18 Dose: 1,000 mls/hr Documented by: ATAYLOR Sodium Chloride (Normal Saline 0.9%) 1,000 mls @ 1,000 mls/hr IV BOLUS ONE Stop: 09/22/21 14:43 Last Infusion: 09/22/21 16:40 Dose: 0 mls/hr Documented by: Admin: 09/22/21 15:31 Dose: 1,000 mls/hr Documented by: ATAYLOR Dexamethasone 20 mg/ Sodium (Chloride) 52 mls @ 208 mls/hr IV NOW ONE Stop: 09/22/21 14:38 Last Infusion: 09/22/21 15:01 Dose: 0 mls/hr Documented by: Admin: 09/22/21 14:46 Dose: 208 mls/hr Documented by: ATAYLJANEL Ketorolac Tromethamine (Ketorolac 30 Mg/Ml Vial) 15 mg IV NOW ONE Stop: 09/22/21 14:48 Last Admin: 09/22/21 14:56 Dose: 15 mg Documented by: ARLETH Vital Signs Vital signs: Vital Signs - 8 hr 09/22/21 13:25 09/22/21 16:41 Temperature 97.5 F L Pulse Rate 78 74 Respiratory Rate 18 18 Blood Pressure 132/82 114/64 Pulse Oximetry 99 99 MDM - Recheck/Abnormal Lab/Rx <Blane Singh PA-C - Last Filed: 09/22/21 20:05> Lab Data Result diagrams: 09/22/21 14:00 09/22/21 14:00 Labs: Lab Results 09/22/21 09/22/21 Range/Units 14:00 14:00 WBC 11.7 H (4.5-11.0) X10^3/uL RBC 4.52 (4.0-5.2) X10^6/uL Hgb 14.1 (12.0-16.0) g/dL Hct 41.8 (36-46) % MCV 92.6 (80-100) fL MCH 31.1 (26-34) PG MCHC 33.6 (30-36) % RDW 12.5 (11.6-14.8) % Plt Count 245 (150-400) X10^3/uL Neut % (Auto) 77.2 H (50-75) % Lymph % (Auto) 15.4 L (25-40) % Dickson % (Auto) 7.3 (3-14) % Eos % (Auto) 0.0 L (2-4) % Baso % (Auto) 0.1 (0-2) % Neut # (Auto) 9000 H (5910-2499) /uL Lymph # (Auto) 1800 (5073-6437) /uL Dickson # (Auto) 900 (0-900) /uL Eos # (Auto) 0 (0-450) /uL Baso # (Auto) 0 (0-100) /uL Sodium 138 (137-145) mmol/L Potassium 3.5 (3.4-5.1) mmol/L Chloride 103 (98-107) mmol/L Carbon Dioxide 27 (22-32) mmol/L BUN 12 (7-17) mg/dL Creatinine 0.82 (0.52-1.04) mg/dL Estimated GFR > 60.0 (>60) mL/min BUN/Creatinine Ratio 14.6 (6-22) Glucose 85 (70-100) mg/dL Calcium 9.1 (8.4-10.2) mg/dL Total Bilirubin 0.9 (0.2-1.3) mg/dL AST 28 (14-36) IU/L ALT 27 (<35) IU/L Alkaline Phosphatase 65 (38-126) U/L Total Protein 8.7 H (6.3-8.2) g/dL Albumin 5.0 (3.5-5.0) g/dL Globulin 3.7 (1.7-4.1) g/dL Albumin/Globulin Ratio 1.4 (1.0-2.8) Lipase 88 (23-300) U/L MDM Narrative Medical decision making narrative: Differential diagnosis to consider but not limited to postoperative complication, postoperative swelling, postoperative bleeding. Physical examination is reassuring as there is no sign bleeding from the surgical site. Patient states she is feeling better following administration of IV fluids, Decadron, and Toradol. Discussed plan to have the patient discharged home with a short course of Decadron to help alleviate her swelling. I instructed the patient to continue taking Tylenol and oxycodone for pain management. Patient expresses understanding and agrees to plan. She states that this time she is comfortable being discharged home stable for discharge. Strict return precautions were discussed with the patient prior to discharge. Discharge Plan Departure Patient Disposition: Home Clinical Impression: Acute dehydration, Constipation, Abdominal pain, Postoperative pain Instructions: DI for Constipation Activity Restrictions/Additional Instructions: *You have been diagnosed with acute dehydration, constipation, abdominal pain, postoperative pain *What to do: *Please continue to take your regular medications as directed. [X] New medication prescriptions sent to your pharmacy: [facility] - Decadron, Docusate, Senna [ ] New medication written as a paper prescription [ ] No new medications given You were evaluated in the emergency department today for difficulty swallowing, dehydration, and postoperative discomfort. Physical examination was reassuring in the emergency department today. You were provided with IV fluids and IV steroids to help alleviate your dehydration and discomfort. I have prescribed you a short course of steroids to help alleviate the swelling. Additionally, I have prescribed view his course of medications to help resolve your constipation. Please follow-up with the primary care provider within the next 2-3 days for further evaluation. Do not hesitate to return to the emergency department if you experience increasing fever, persistent vomiting, bleeding from the surgical site, inability to swallow, or any other concerning symptoms. *Please follow up with your primary care provider in 2-3 days, call for an appointment. Let them know you were seen in the Emergency Department and that we ask that you be seen in follow up. We will electronically transmit a record of today's note if your PCP is in our system *If you do not have a primary care provider please contact the [facility] Resource line at [phone]. They will ask some questions about your medical history and help get you set up with a doctor in the community. *Return to Emergency Department if you should have any new, worsening or concerning symptoms, such as fever greater than 101 F, shaking chills, worsening pain, persistent vomiting or other bothersome symptoms. Prescriptions: New dexamethasone [Decadron] 4 mg tablet 4 mg PO BID Qty: 10 0RF docusate sodium 100 mg capsule 100 mg PO DAILY Qty: 10 0RF senna 8.6 mg capsule 8.6 mg PO DAILY PRN (Reason: constipation) Qty: 10 0RF No Action norethindrone-e.estradiol-iron [Microgestin Fe 1.5/30 (28)] 1.5 mg-30 mcg (21)/75 mg (7) tablet 1 tab PO DAILY 0RF Referrals: Shmuel Benitez MD [Primary Care Provider] -
[2021-09-22 16:41] VITALS: BP 114/64; PULSE 74; RESP 18; O2SAT 99
== END 2021-09-22 16:43 | disposition home or self-care (01) ==
PROVIDERS: Emergency Medicine; Emergency Provider Physician Assistant; PCP Student in an Organized Health Care Education/Training Program
DX: E86.0 Dehydration (principal); K59.00 Constipation, unspecified; G89.18 Other acute postprocedural pain; R10.31 Right lower quadrant pain; R10.32 Left lower quadrant pain
CPT/HCPCS: 36415; 80053; 83690; 85025; 96361; 96374; 96375; 99284; J1100; J1885

== ENCOUNTER 2023-04-30 11:36 | Emergency (ER) | payer OTHER, SELFPAY ==
[2023-04-30 11:39] VITALS: BP 145/84; PULSE 80; RESP 18; TEMP 36.6; O2SAT 98; BMI 25.8
[2023-04-30 12:44] LABS: Add Manual Diff / Slide Review NO; Basophils Absolute Auto 0 /uL (0-100); Basophils Percent Auto 0.5 % (0-2); Eosinophils Absolute Auto 100 /uL (0-450); Eosinophils Percent Auto 1.1 % (2-4); Hematocrit 42.2 % (36-46); Hemoglobin 14.1 g/dL (12.0-16.0); Lymphocytes Absolute Auto 2300 /uL (1100-4500); Lymphocytes Percent Auto 37.2 % (25-40); Mean Corpuscular HGB Conc 33.5 % (30-36); Mean Corpuscular Hemoglobin 30.7 PG (26-34); Mean Corpuscular Volume 91.8 fL (80-100); Monocytes Absolute Auto 400 /uL (0-900); Monocytes Percent Auto 6.5 % (3-14); Neutrophils Absolute Auto 3500 /uL (1500-7000); Neutrophils Percent Auto 54.7 % (50-75); Platelet Count 307 X10^3/uL (150-400); Red Cell Distribution Width 12.9 % (11.6-14.8); White Blood Cell Count 6.3 X10^3/uL (4.5-11.0)
[2023-04-30 13:01] LABS: Alanine Aminotransferase 31 IU/L (<35); Albumin 4.7 g/dL (3.5-5.0); Albumin Globulin Ratio 1.4 (1.0-2.8); Alkaline Phosphatase 60 U/L (38-126); Aspartate Aminotransferase 31 IU/L (14-36); BUN Creatinine Ratio 16.9 (6-22); Bilirubin Total 0.3 mg/dL (0.2-1.3); Blood Urea Nitrogen 10 mg/dL (7-17); Calcium 10.1 mg/dL (8.4-10.2); Carbon Dioxide 24 mmol/L (22-32); Chloride 104 mmol/L (98-107); Estimated Glomerular Filt Rate > 60 mL/min (>60); Globulin 3.3 g/dL (1.7-4.1); Glucose 95 mg/dL (70-100); HEMOLYSIS 22 (0-50); Lipase 193 U/L (23-300); Potassium 4.1 mmol/L (3.4-5.1); Sodium 139 mmol/L (137-145)
[2023-04-30 13:12] VITALS: BP 140/78; PULSE 68; RESP 16; O2SAT 97
--- NOTE | 2023-04-30 13:52 | DI.US.S_ITS ---
PROCEDURE: US ABDOMEN LIMITED INDICATIONS: RUQ ultrasound, eval for gallstones TECHNIQUE: Real-time scanning was performed of the abdominal and retroperitoneal organs, with image documentation. COMPARISON: [facility], US, US ABDOMEN LIMITED, 08/07/2021, 16:17. FINDINGS: Liver: Liver is normal in size and homogeneous in echotexture. Gallbladder: Gallbladder is contracted. No gross gallstones. No gallbladder wall thickening or pericholecystic fluid. No sonographic Denney's sign. Biliary ducts: Intrahepatic bile ducts are non-dilated. Extrahepatic bile duct caliber measures 2 mm. Normal is 6-7 mm or less in diameter, or 10 mm or less post-cholecystectomy. Pancreas: Visualized portions of the pancreas are sonographically normal. IMPRESSION: 1. Unremarkable ultrasound examination of right upper quadrant abdomen. Dictated by: Deonte Singh M.D. on 04/30/2023 at 14:22 Approved by: Deonte Singh M.D. on 04/30/2023 at 14:22
--- NOTE | 2023-04-30 14:07 | ED.ABDPAIN ---
HPI - Abdominal Pain <Suzie García PA-C - Last Filed: 04/30/23 14:42> General Chief Complaint: Abdominal Pain Stated Complaint: gi issues Time Seen by Provider: 04/30/23 11:57 Source: patient Mode of arrival: Ambulatory History of Present Illness HPI narrative: Patient is a 27-year-old female who presents with abdominal pain. She reports approximately 2 years of generalized abdominal pain. She presents today because she would vomited several times this morning. In the past, she reports that her liver enzymes and something to do with her pancreas were elevated. She has not seen a GI specialist. She does recall having a abdominal ultrasound that noted gallbladder sludge in the past. She generally avoids red meat, poor, coffee, alcohol due to stomach pain. She vomits some days. She thinks she saw black specks in her stool. She denies fever or chills, chest pain, urinary symptoms, diarrhea or constipation. She does not currently have a PCP. Related Data Home Medications Medication Instructions Recorded Confirmed norethindrone 1.5 mg-ethinyl 1 tab PO DAILY 09/20/21 09/20/21 estradiol 30 mcg(21)/iron 75 mg(7) tablet (Microgestin Fe 1.5/30 (28)) Previous Rx's Medication Instructions Recorded dexamethasone 4 mg tablet 4 mg PO BID #10 tabs 09/22/21 (Decadron) docusate sodium 100 mg capsule 100 mg PO DAILY #10 caps 09/22/21 sennosides 8.6 mg capsule (senna) 8.6 mg PO DAILY PRN constipation 09/22/21 #10 caps Allergies Allergy/AdvReac Type Severity Reaction Status Date / Time No Known Drug Allergies Allergy Verified 09/22/21 13:27 Review of Systems <Suzie García PA-C - Last Filed: 04/30/23 14:42> Review of Systems ROS Unobtainable: All systems reviewed & are unremarkable except as noted in HPI and below Patient History <Suzie García PA-C - Last Filed: 04/30/23 14:42> Medical History Tonsillar hypertrophy Tonsil stone Throat infection Enlarged tonsils Healthy adult Social History household members: friend(s) Smoking Status: Never smoker alcohol intake: current Smoking Status: Never smoker tobacco type: cigarettes alcohol intake frequency: holidays/special occasions only Substance Use Type: does not use Exam <Suzie García PA-C - Last Filed: 04/30/23 14:42> Narrative Exam Narrative: GENERAL: 27 year old patient appears stated age. Well-developed patient, in no distress. NEURO: AOx3. HEAD: Atraumatic. Normocephalic. EYES: Pupils equal round and reactive. Extraocular motions intact. No scleral icterus. No injection or drainage. ENT: Nose without bleeding or purulent drainage. Airway patent. CARDIOVASCULAR: Regular rate and rhythm. Soft systolic murmur noted, patient reports she is not been aware of this before. RESPIRATORY: Clear to auscultation. Breath sounds equal bilaterally. No wheezes, rales, or rhonchi. GASTROINTESTINAL: Abdomen soft, nondistended. Generalized tenderness to palpation, mildly positive Denney's, positive epigastric tenderness. SKIN: No rash or erythema of visible areas Initial Vital Signs Initial Vital Signs: Vital Signs Temperature 97.9 F 04/30/23 11:39 Pulse Rate 80 04/30/23 11:39 Respiratory Rate 18 04/30/23 11:39 Blood Pressure 145/84 H 04/30/23 11:39 Pulse Oximetry 98 04/30/23 11:39 Oxygen Delivery Method Room Air 04/30/23 11:39 <Campos Brooks MD - Last Filed: 05/06/23 08:08> Initial Vital Signs Initial Vital Signs: Vital Signs Temperature 97.9 F 04/30/23 11:39 Pulse Rate 80 04/30/23 11:39 Respiratory Rate 18 04/30/23 11:39 Blood Pressure 145/84 H 04/30/23 11:39 Pulse Oximetry 98 04/30/23 11:39 Oxygen Delivery Method Room Air 04/30/23 11:39 Course <Suzie García PA-C - Last Filed: 04/30/23 14:42> Orders Ordered: Discontinued Medications Ondansetron HCl (Ondansetron 4 Mg Odt) 4 mg PO NOW PRN PRN Reason: Nausea And Vomiting Ondansetron HCl (Ondansetron 4 Mg/2 Ml Inj) 4 mg IV NOW PRN PRN Reason: Nausea And Vomiting Pantoprazole Sodium (Pantoprazole Dr 20 Mg Tablet) 20 mg PO NOW ONE Stop: 04/30/23 14:37 Last Admin: 04/30/23 14:46 Dose: 20 mg Documented By: KF Vital Signs Vital signs: Vital Signs - 8 hr 04/30/23 11:39 04/30/23 13:12 Temperature 97.9 F Pulse Rate 80 68 Respiratory Rate 18 16 Blood Pressure 145/84 H 140/78 Pulse Oximetry 98 97 Oxygen Delivery Method Room Air Room Air <Campos Brooks MD - Last Filed: 05/06/23 08:08> Orders Ordered: Discontinued Medications Ondansetron HCl (Ondansetron 4 Mg Odt) 4 mg PO NOW PRN PRN Reason: Nausea And Vomiting Ondansetron HCl (Ondansetron 4 Mg/2 Ml Inj) 4 mg IV NOW PRN PRN Reason: Nausea And Vomiting Pantoprazole Sodium (Pantoprazole Dr 20 Mg Tablet) 20 mg PO NOW ONE Stop: 04/30/23 14:37 Last Admin: 04/30/23 14:46 Dose: 20 mg Documented By: KF Vital Signs Vital signs: Vital Signs - 8 hr 04/30/23 11:39 04/30/23 13:12 Temperature 97.9 F Pulse Rate 80 68 Respiratory Rate 18 16 Blood Pressure 145/84 H 140/78 Pulse Oximetry 98 97 Oxygen Delivery Method Room Air Room Air MDM - Abdominal Pain <Suzie García PA-C - Last Filed: 04/30/23 14:42> Lab Data 04/30/23 12:28 04/30/23 12:28 Labs: Lab Results 04/30/23 Range/Units 12:28 WBC 6.3 (4.5-11.0) X10^3/uL RBC 4.60 (4.0-5.2) X10^6/uL Hgb 14.1 (12.0-16.0) g/dL Hct 42.2 (36-46) % MCV 91.8 (80-100) fL MCH 30.7 (26-34) PG MCHC 33.5 (30-36) % RDW 12.9 (11.6-14.8) % Plt Count 307 (150-400) X10^3/uL Neut % (Auto) 54.7 (50-75) % Lymph % (Auto) 37.2 (25-40) % [place] % (Auto) 6.5 (3-14) % Eos % (Auto) 1.1 L (2-4) % Baso % (Auto) 0.5 (0-2) % Neut # (Auto) 3500 (9704-8682) /uL Lymph # (Auto) 2300 (6234-5402) /uL [place] # (Auto) 400 (0-900) /uL Eos # (Auto) 100 (0-450) /uL Baso # (Auto) 0 (0-100) /uL Sodium 139 (137-145) mmol/L Potassium 4.1 (3.4-5.1) mmol/L Chloride 104 (98-107) mmol/L Carbon Dioxide 24 (22-32) mmol/L BUN 10 (7-17) mg/dL Creatinine 0.59 (0.52-1.04) mg/dL Estimated GFR > 60 (>60) mL/min BUN/Creatinine Ratio 16.9 (6-22) Glucose 95 (70-100) mg/dL Calcium 10.1 (8.4-10.2) mg/dL Total Bilirubin 0.3 (0.2-1.3) mg/dL AST 31 (14-36) IU/L ALT 31 (<35) IU/L Alkaline Phosphatase 60 (38-126) U/L Total Protein 8.0 (6.3-8.2) g/dL Albumin 4.7 (3.5-5.0) g/dL Globulin 3.3 (1.7-4.1) g/dL Albumin/Globulin Ratio 1.4 (1.0-2.8) Lipase 193 (23-300) U/L Point of care testing: Point of Care Testing Test Results Negative Urine Dip Bedside Urine Glucose Negative Bedside Urine Bilirubin - Negative Bedside Urine Ketone - Negative Urine Specific [place] 1.015 Bedside Urine Occult Blood - Negative Bedside Urine pH 7.0 Bedside Urine Protein - Negative Bedside Urine Urobilinogen - Negative Bedside Urine Nitrite - Negative Bedside Urine Leukocytes - Negative Esterase Imaging Data US - abdomen: Radiologist's Impression: PROCEDURE: US ABDOMEN LIMITED INDICATIONS: RUQ ultrasound, eval for gallstones TECHNIQUE: Real-time scanning was performed of the abdominal and retroperitoneal organs, with image documentation. COMPARISON: [facility], US, US ABDOMEN LIMITED, 08/07/2021, 16:17. FINDINGS: Liver: Liver is normal in size and homogeneous in echotexture. Gallbladder: Gallbladder is contracted. No gross gallstones. No gallbladder wall thickening or pericholecystic fluid. No sonographic Denney's sign. Biliary ducts: Intrahepatic bile ducts are non-dilated. Extrahepatic bile duct caliber measures 2 mm. Normal is 6-7 mm or less in diameter, or 10 mm or less post-cholecystectomy. Pancreas: Visualized portions of the pancreas are sonographically normal. IMPRESSION: 1. Unremarkable ultrasound examination of right upper quadrant abdomen. Dictated by: Deonte Singh M.D. on 04/30/2023 at 14:22 Approved by: Deonte Singh M.D. on 04/30/2023 at 14:[address] [facility] Narrative Medical decision making narrative: Multiple etiologies for patient's symptoms considered including, but not limited to: GERD, cholecystitis, biliary colic, inflammatory bowel disease, pancreatitis. Labs without clinically significant abnormality including negative lipase, normal LFTs, no anemia, Urine negative. RUQ ultrasound unremarkable. Given her food aversions due to stomach pain, I suspect she has some degree of GERD and is not currently taking any medications to address this. I will have her start a PPI and follow up with PCP for reassessment; would consider h pylori testing if symptoms not improved and GI consult. Patient's symptoms improved over duration of stay with above-stated therapies. Findings and discharge diagnosis discussed with patient/family followed by verbalization of understanding Return precautions discussed with patient/family whom verbalize understanding of diagnosis and plan <Campos Brooks MD - Last Filed: 05/06/23 08:08> Lab Data Labs: Lab Results 04/30/23 Range/Units 12:28 WBC 6.3 (4.5-11.0) X10^3/uL RBC 4.60 (4.0-5.2) X10^6/uL Hgb 14.1 (12.0-16.0) g/dL Hct 42.2 (36-46) % MCV 91.8 (80-100) fL MCH 30.7 (26-34) PG MCHC 33.5 (30-36) % RDW 12.9 (11.6-14.8) % Plt Count 307 (150-400) X10^3/uL Neut % (Auto) 54.7 (50-75) % Lymph % (Auto) 37.2 (25-40) % [place] % (Auto) 6.5 (3-14) % Eos % (Auto) 1.1 L (2-4) % Baso % (Auto) 0.5 (0-2) % Neut # (Auto) 3500 (8189-5344) /uL Lymph # (Auto) 2300 (6080-2138) /uL [place] # (Auto) 400 (0-900) /uL Eos # (Auto) 100 (0-450) /uL Baso # (Auto) 0 (0-100) /uL Sodium 139 (137-145) mmol/L Potassium 4.1 (3.4-5.1) mmol/L Chloride 104 (98-107) mmol/L Carbon Dioxide 24 (22-32) mmol/L BUN 10 (7-17) mg/dL Creatinine 0.59 (0.52-1.04) mg/dL Estimated GFR > 60 (>60) mL/min BUN/Creatinine Ratio 16.9 (6-22) Glucose 95 (70-100) mg/dL Calcium 10.1 (8.4-10.2) mg/dL Total Bilirubin 0.3 (0.2-1.3) mg/dL AST 31 (14-36) IU/L ALT 31 (<35) IU/L Alkaline Phosphatase 60 (38-126) U/L Total Protein 8.0 (6.3-8.2) g/dL Albumin 4.7 (3.5-5.0) g/dL Globulin 3.3 (1.7-4.1) g/dL Albumin/Globulin Ratio 1.4 (1.0-2.8) Lipase 193 (23-300) U/L Point of care testing: Point of Care Testing Test Results Negative Urine Dip Bedside Urine Glucose Negative Bedside Urine Bilirubin - Negative Bedside Urine Ketone - Negative Urine Specific [place] 1.015 Bedside Urine Occult Blood - Negative Bedside Urine pH 7.0 Bedside Urine Protein - Negative Bedside Urine Urobilinogen - Negative Bedside Urine Nitrite - Negative Bedside Urine Leukocytes - Negative Esterase Discharge Plan Departure Patient Disposition: Home Clinical Impression: GERD (gastroesophageal reflux disease) Qualifiers: Esophagitis presence: esophagitis presence not specified Qualified Code(s): K21.9 - Gastro-esophageal reflux disease without esophagitis Abdominal pain Qualifiers: Abdominal location: generalized Qualified Code(s): R10.84 - Generalized abdominal pain Instructions: DI for Gastroesophageal Reflux Disease (GERD), DI for Abdominal Pain-Adult Activity Restrictions/Additional Instructions: *You have been diagnosed with gastroesophageal reflux disease (GERD). Your lab tests today were normal and your abdominal ultrasound did not show any gallbladder stones, sludge or gallbladder thickening. I suspect your stomach pain is related to excessive acid in your stomach and maybe improved by taking a proton pump inhibitor medicine, also known as a PPI. Examples of this kind of medication are omeprazole and pantoprazole, both of which are available [id number]. If your abdominal pain is not improved with this medication, I would suggest following up with primary care for consideration of testing for H pylori, which is a bacterial infection in your stomach and possibly a referral to a GI specialist. As we discussed, I noticed that you have a murmur when I was listening to your heart today. Often this is benign but sometimes it requires further follow-up. Please mention this to your primary care provider. *What to do: *Please continue to take your regular medications as directed. [ ] New medication prescriptions sent to your pharmacy: [ ] [ ] New medication written as a paper prescription [x] No new medications given *Please follow up with your primary care provider in 2-3 days, call for an appointment. Let them know you were seen in the Emergency Department and that we ask that you be seen in follow up. We will electronically transmit a record of today's note if your PCP is in our system *If you do not have a primary care provider please contact the [facility] Resource line at [phone]. They will ask some questions about your medical history and help get you set up with a doctor in the community. *Return to Emergency Department if you should have any new, worsening or concerning symptoms, such as [fever greater than 101 F, shaking chills, worsening pain, persistent vomiting or other concerning symptoms]. Prescriptions: No Action dexamethasone [Decadron] 4 mg tablet 4 mg PO BID Qty: 10 0RF docusate sodium 100 mg capsule 100 mg PO DAILY Qty: 10 0RF senna 8.6 mg capsule 8.6 mg PO DAILY PRN (Reason: constipation) Qty: 10 0RF norethindrone-e.estradiol-iron [Microgestin Fe 1.5/30 (28)] 1.5 mg-30 mcg (21)/75 mg (7) tablet 1 tab PO DAILY Referrals: Shmuel Benitez MD [Primary Care Provider] - Stand Alone Forms: Patient Portal/API ED Sign-out <Campos Brooks MD - Last Filed: 05/06/23 08:08> Cosign ED Attending Cosignature Attestation: I was immediately available in the department for consultation. ?This documentation has been reviewed and I agree with assessment and plan. Supervised by Campos Brooks MD
[2023-04-30] MEDS: PANTOPRAZOLE DR 20 MG TABLET PO (14:46)
== END 2023-04-30 14:50 | disposition home or self-care (01) ==
PROVIDERS: Emergency Medicine; Emergency Provider Physician Assistant; PCP Student in an Organized Health Care Education/Training Program
DX: K21.9 Gastro-esophageal reflux disease without esophagitis (principal); R10.84 Generalized abdominal pain
CPT/HCPCS: 36415; 76705; 80053; 81003; 81025; 83690; 85025; 99284

== ENCOUNTER 2023-05-17 07:06 | Emergency (ER) | payer OTHER, SELFPAY ==
[2023-05-17 07:35] VITALS: BP 146/83; PULSE 126; RESP 22; TEMP 37.5; O2SAT 97; BMI 25.8
--- NOTE | 2023-05-17 07:44 | ED.CHESTPAIN ---
HPI - Chest Pain General Chief Complaint: Upper Respiratory Symptoms Stated Complaint: chest pain, vomiting, body aches Time Seen by Provider: 05/17/23 07:33 History of Present Illness HPI narrative: Patient is a 27-year-old female her chronic ongoing abdominal pain for 2 year was seen evaluated here 04/30/2023 diagnosed with acid reflux. She was instructed to take [id number] omeprazole or pantoprazole however he forgot to pick it up. Today she presents with burning sensation in her chest sore throat she vomited green bile this morning. She is quite anxious she is ongoing abdominal pain in lower abdomen she reports it is different. She thinks she is had a productive cough for the last 2 days she may have had a fever does not a fever now. Denies any palpitations Related Data Home Medications Medication Instructions Recorded Confirmed norethindrone 1.5 mg-ethinyl 1 tab PO DAILY 09/20/21 09/20/21 estradiol 30 mcg(21)/iron 75 mg(7) tablet (Microgestin Fe 1.5/30 (28)) Previous Rx's Medication Instructions Recorded dexamethasone 4 mg tablet 4 mg PO BID #10 tabs 09/22/21 (Decadron) docusate sodium 100 mg capsule 100 mg PO DAILY #10 caps 09/22/21 sennosides 8.6 mg capsule (senna) 8.6 mg PO DAILY PRN constipation 09/22/21 #10 caps omeprazole 20 mg capsule,delayed 20 mg PO DAILY #30 caps 05/17/23 release Allergies Allergy/AdvReac Type Severity Reaction Status Date / Time No Known Drug Allergies Allergy Verified 09/22/21 13:27 Review of Systems Review of Systems ROS Unobtainable: All systems reviewed & are unremarkable except as noted in HPI and below Patient History Medical History Tonsillar hypertrophy Tonsil stone Throat infection Enlarged tonsils Healthy adult Social History household members: friend(s) Smoking Status: Never smoker alcohol intake: current Smoking Status: Never smoker tobacco type: cigarettes alcohol intake frequency: holidays/special occasions only Substance Use Type: does not use Exam Initial Vital Signs Initial Vital Signs: Vital Signs Temperature 99.5 F 05/17/23 07:35 Pulse Rate 126 H 05/17/23 07:35 Respiratory Rate 22 05/17/23 07:35 Blood Pressure 146/83 H 05/17/23 07:35 Pulse Oximetry 97 05/17/23 07:35 Oxygen Delivery Method Room Air 05/17/23 07:35 GENERAL: Alert anxious well-appearing 27-year-old female HEENT: Head atraumatic,EOMI, pupils reactive, face symmetric, moist mucous membrane CARDIOVASCULAR: Tachycardic regular no murmurs RESPIRATORY: Breath sounds equal bilaterally, no wheezes rales or rhonchi. ABDOMEN: Soft, nontender. Normoactive bowel sounds all 4 quadrants. No guarding or rebound. EXTREMITIES: Normal range of motion, no clubbing or edema. Neurovascularly intact NEUROLOGICAL: Alert and oriented x4 SKIN: Warm, dry, no laceration, no petechiae, no rashes or lesions. Course Orders Ordered: ED Orders 05/17/23 07:28 CBC Auto Diff [Complete Blood Count AUTO DIFF] Stat CMP [Comprehensive Metabolic Panel] Stat Lipase Stat 05/17/23 07:34 COVID19 -Nasal RAPID Stat 05/17/23 07:51 EKG-12 Lead Stat Discontinued Medications Al Hydrox/Mg Hydrox/Simethicone 20 ml/ Lidocaine HCl 15 ml 0 ml PO NOW ONE Stop: 05/17/23 07:51 Last Admin: 05/17/23 08:11 Dose: 45 ml Documented By: VAUGHN Pantoprazole Sodium (Pantoprazole 40 Mg Vial) 40 mg IV NOW ONE Stop: 05/17/23 07:51 Last Admin: 05/17/23 08:12 Dose: 40 mg Documented By: VAUGHN Vital Signs Vital signs: Vital Signs - 8 hr 05/17/23 07:35 05/17/23 08:21 05/17/23 08:22 Temperature 99.5 F Pulse Rate 126 H 115 H 110 H Respiratory Rate 22 22 24 Blood Pressure 146/83 H Pulse Oximetry 97 97 99 Oxygen Delivery Method Room Air Room Air 05/17/23 08:30 Temperature Pulse Rate 112 H Respiratory Rate 22 Blood Pressure 134/78 Pulse Oximetry 100 Oxygen Delivery Method MDM - Chest Pain Lab Data 05/17/23 07:28 05/17/23 07:28 Labs: Lab Results 05/17/23 05/17/23 Range/Units 07:28 07:34 WBC 6.9 (4.5-11.0) X10^3/uL RBC 4.51 (4.0-5.2) X10^6/uL Hgb 14.1 (12.0-16.0) g/dL Hct 41.5 (36-46) % MCV 92.0 (80-100) fL MCH 31.4 (26-34) PG MCHC 34.1 (30-36) % RDW 12.8 (11.6-14.8) % Plt Count 229 (150-400) X10^3/uL Neut % (Auto) 89.4 H (50-75) % Lymph % (Auto) 4.2 L (25-40) % [place] % (Auto) 5.4 (3-14) % Eos % (Auto) 0.4 L (2-4) % Baso % (Auto) 0.6 (0-2) % Neut # (Auto) 6100 (3708-0581) /uL Lymph # (Auto) 300 L (2980-5344) /uL [place] # (Auto) 400 (0-900) /uL Eos # (Auto) 0 (0-450) /uL Baso # (Auto) 0 (0-100) /uL Sodium 136 L (137-145) mmol/L Potassium 3.5 (3.4-5.1) mmol/L Chloride 103 (98-107) mmol/L Carbon Dioxide 22 (22-32) mmol/L BUN 8 (7-17) mg/dL Creatinine 0.68 (0.52-1.04) mg/dL Estimated GFR > 60 (>60) mL/min BUN/Creatinine Ratio 11.8 (6-22) Glucose 158 H (70-100) mg/dL Calcium 9.8 (8.4-10.2) mg/dL Total Bilirubin 0.5 (0.2-1.3) mg/dL AST 89 H (14-36) IU/L ALT 89 H (<35) IU/L Alkaline Phosphatase 72 (38-126) U/L Total Protein 7.7 (6.3-8.2) g/dL Albumin 4.7 (3.5-5.0) g/dL Globulin 3.0 (1.7-4.1) g/dL Albumin/Globulin Ratio 1.6 (1.0-2.8) Lipase 96 (23-300) U/L SARS-CoV-2 (PCR) Positive H (Negative) ECG Data Interpretation: Sinus tachycardia rate 121 NM interval 134 QRS [address] changes. MDM Narrative Medical decision making narrative: Patient 27-year-old female presenting today with upper respiratory like symptoms along with burning in chest. Previously diagnosed with acid reflux did not picker / packer medication. She is positive for COVID. Blood work has been reviewed she is mild LFTs with a normal bilirubin nontender in her right upper quadrant lungs are clear not requiring oxygen. Supportive care only. Discharge Plan Departure Patient Disposition: Home Clinical Impression: COVID-19, GERD (gastroesophageal reflux disease) Instructions: DI for Gastroesophageal Reflux Disease (GERD), DI for COVID-19 (Suspected or Confirmed ) Activity Restrictions/Additional Instructions: *You have been diagnosed with COVID-19 and acid reflux *What to do: At this time increase fluids tolerated fever control with Tylenol and Motrin as directed. Do strongly recommend taking omeprazole or pantoprazole so help with the burning chest. *Continue to take medications as directed Omeprazole 20 mg once daily --> [facility] *Follow up with your primary care provider in 2-3 days or call [phone] *Return to ER if you should have increased difficulty breathing cough shortness of breath or any new, worsening or concerning symptoms Prescriptions: New omeprazole 20 mg capsule,delayed release(DR/EC) 20 mg PO DAILY Qty: 30 0RF No Action dexamethasone [Decadron] 4 mg tablet 4 mg PO BID Qty: 10 0RF docusate sodium 100 mg capsule 100 mg PO DAILY Qty: 10 0RF senna 8.6 mg capsule 8.6 mg PO DAILY PRN (Reason: constipation) Qty: 10 0RF norethindrone-e.estradiol-iron [Microgestin Fe 1.5/30 (28)] 1.5 mg-30 mcg (21)/75 mg (7) tablet 1 tab PO DAILY Referrals: Shmuel Benitez MD [Primary Care Provider] - Stand Alone Forms: Patient Portal/API
[2023-05-17 07:58] LABS: COVID19 -Nasal RAPID POSITIVE (Negative)
[2023-05-17 08:00] LABS: Add Manual Diff / Slide Review NO; Basophils Absolute Auto 0 /uL (0-100); Basophils Percent Auto 0.6 % (0-2); Eosinophils Absolute Auto 0 /uL (0-450); Eosinophils Percent Auto 0.4 % (2-4); Hematocrit 41.5 % (36-46); Hemoglobin 14.1 g/dL (12.0-16.0); Lymphocytes Absolute Auto 300 /uL (1100-4500); Lymphocytes Percent Auto 4.2 % (25-40); Mean Corpuscular HGB Conc 34.1 % (30-36); Mean Corpuscular Hemoglobin 31.4 PG (26-34); Monocytes Absolute Auto 400 /uL (0-900); Monocytes Percent Auto 5.4 % (3-14); Neutrophils Absolute Auto 6100 /uL (1500-7000); Neutrophils Percent Auto 89.4 % (50-75); Platelet Count 229 X10^3/uL (150-400); Red Blood Cell Count 4.51 X10^6/uL (4.0-5.2); Red Cell Distribution Width 12.8 % (11.6-14.8); White Blood Cell Count 6.9 X10^3/uL (4.5-11.0)
[2023-05-17 08:05] LABS: Alanine Aminotransferase 89 IU/L (<35); Albumin 4.7 g/dL (3.5-5.0); Albumin Globulin Ratio 1.6 (1.0-2.8); Alkaline Phosphatase 72 U/L (38-126); Aspartate Aminotransferase 89 IU/L (14-36); BUN Creatinine Ratio 11.8 (6-22); Bilirubin Total 0.5 mg/dL (0.2-1.3); Blood Urea Nitrogen 8 mg/dL (7-17); Calcium 9.8 mg/dL (8.4-10.2); Carbon Dioxide 22 mmol/L (22-32); Chloride 103 mmol/L (98-107); Estimated Glomerular Filt Rate > 60 mL/min (>60); Glucose 158 mg/dL (70-100); HEMOLYSIS 17 (0-50); Lipase 96 U/L (23-300); Potassium 3.5 mmol/L (3.4-5.1); Sodium 136 mmol/L (137-145); Total Protein 7.7 g/dL (6.3-8.2)
[2023-05-17] MEDS: MAG HYDROX/ALUMINUM/SIMETH SUS 20 ML, LIDOCAINE VISCOUS 2% 15 ML PO (08:11)
[2023-05-17] MEDS: PANTOPRAZOLE 40 MG VIAL IV (08:12)
[2023-05-17 08:21] VITALS: PULSE 115; RESP 22; O2SAT 97
[2023-05-17 08:22] VITALS: PULSE 110; RESP 24; O2SAT 99
[2023-05-17 08:30] VITALS: BP 134/78; PULSE 112; RESP 22; O2SAT 100
== END 2023-05-17 09:00 | disposition home or self-care (01) ==
PROVIDERS: Emergency Provider Emergency Medicine; PCP Student in an Organized Health Care Education/Training Program
DX: U07.1 COVID-19 (principal); K21.9 Gastro-esophageal reflux disease without esophagitis
CPT/HCPCS: 80053; 83690; 85025; 87635; 96374; 99284; C9803; C9113

== ENCOUNTER 2023-05-19 09:19 | Emergency (ER) | payer OTHER, SELFPAY ==
[2023-05-19 09:49] VITALS: BP 132/83; PULSE 94; RESP 18; TEMP 37; O2SAT 95; BMI 24.1
[2023-05-19 10:20] LABS: Strep Grp A by PCR Rapid Negative (Negative)
--- NOTE | 2023-05-19 11:54 | PC.NURSE ---
Symptom started on Friday with a cough and sore throat. She has had some nausea and vomiting that has since resolved. her throat is red and she has some white patches on both sides of her mouth over her tonsils. She complains of 8/10 pain in her throat. She states that she can drink fluids but has not been eating as much. She states that she has had a fever. Her temp here today is 98.5 F and her last dose if ibuprophen was last night around 10pm last night.
[2023-05-19 12:11] VITALS: BP 136/78; PULSE 96; RESP 14; TEMP 36.9; O2SAT 97
--- NOTE | 2023-05-19 12:12 | ED_ITS ---
HPI - URI/Sore Throat <Taqueria Dupont PA-C - Last Filed: 05/19/23 12:17> General Chief Complaint: Upper Respiratory Symptoms Stated Complaint: Covid+/throat hurts to swallow Time Seen by Provider: 05/19/23 11:58 Source: patient Mode of arrival: Ambulatory History of Present Illness HPI Narrative: 27-year-old female with past medical history GERD presents to the ED with 1 week of sore throat. Patient states that she has multiple URI symptoms, tested positive for COVID 5 days ago. Patient endorses fever, chills, myalgias, sore throat, cough, runny nose. Patient also endorses some vomiting a few days ago, however that has resolved. Patient denies chest pain, shortness of breath, lightheadedness, dizziness, syncope. Patient presented to the ED today since she was concerned about possible strep throat. Related Data Home Medications Medication Instructions Recorded Confirmed norethindrone 1.5 mg-ethinyl 1 tab PO DAILY 09/20/21 09/20/21 estradiol 30 mcg(21)/iron 75 mg(7) tablet (Microgestin Fe 1.5/30 (28)) Previous Rx's Medication Instructions Recorded dexamethasone 4 mg tablet 4 mg PO BID #10 tabs 09/22/21 (Decadron) docusate sodium 100 mg capsule 100 mg PO DAILY #10 caps 09/22/21 sennosides 8.6 mg capsule (senna) 8.6 mg PO DAILY PRN constipation 09/22/21 #10 caps omeprazole 20 mg capsule,delayed 20 mg PO DAILY #30 caps 05/17/23 release Allergies Allergy/AdvReac Type Severity Reaction Status Date / Time No Known Drug Allergies Allergy Verified 05/19/23 09:53 Review of Systems <Taqueria Dupont PA-C - Last Filed: 05/19/23 12:17> Constitutional Constitutional: Reports body ache(s), Reports chills, Denies fatigue, Reports fever(s), Denies frequent falls, Denies lethargy and Denies weakness Eyes Eyes: Denies change in vision, Denies eye discharge, Denies irritation and Denies loss of vision ENT Ears, Nose, Mouth, and Throat: Denies change in voice, Denies dizziness, Reports nasal discharge, Denies neck pain, Reports sore throat and Denies throat swelling Cardiovascular Cardiovascular: Denies chest pain, Denies irregular heart rhythm, Denies lightheadedness, Denies palpitations, Denies dyspnea, Denies dyspnea on exertion and Denies orthopnea Respiratory Respiratory: Reports cough, Denies dyspnea, Denies dyspnea on exertion and Denies wheezing Gastrointestinal Gastrointestinal: Denies abdominal pain, Denies change in bowel habits, Denies diarrhea, Reports nausea and Reports vomiting Musculoskeletal Musculoskeletal: Denies neck pain and Denies numbness Integumentary/Breasts Skin/Breast: Denies pruritus, Denies erythema, Denies rash and Denies wounds Neurologic Neurologic: Denies behavioral changes, Denies confusion, Denies dizziness, Denies frequent falls, Denies loss of vision, Denies numbness and Denies weakness Psychiatric Psychiatric: Denies anxiety, Denies behavioral changes, Denies confusion, Denies depression, Denies homicidal ideation and Denies suicidal ideation Endocrine Endocrine: Denies fatigue, Denies flushing and Denies palpitations Hematologic/Lymphatic Hematologic/Lymphatic: Denies easy bruising Allergic/Immunologic Allergic/Immunologic: Denies urticaria, Denies throat swelling and Denies wheezing Patient History <Taqueria Dupont PA-C - Last Filed: 05/19/23 12:17> Medical History Tonsillar hypertrophy Tonsil stone Throat infection Enlarged tonsils Healthy adult Social History household members: friend(s) Smoking Status: Never smoker alcohol intake: current Smoking Status: Never smoker tobacco type: cigarettes alcohol intake frequency: a few times a month Substance Use Type: does not use Exam <Taqueria Dupont PA-C - Last Filed: 05/19/23 12:17> Narrative Exam Narrative: Const General:?cooperative, healthy appearing and comfortable [facility] Head:?normal to inspection Ears:?hearing grossly normal bilaterally Nose:?external nose normal Face and sinus:?normal facial exam and sinuses nontender Mouth:?oral mucosae normal Throat:?posterior oropharynx normal; status post tonsillectomy; airway is patent Eyes General:?appearance normal, both eyes and all related structures Neck Neck:?normal visual inspection and no lymphadenopathy noted Resp Effort & Inspection:?normal respiratory effort Auscultation:?clear to auscultation bilaterally Cardio Rate:?regular rate Rhythm:?regular rhythm Neuro General:?patient alert, patient awake and patient oriented x3 Initial Vital Signs Initial Vital Signs: Vital Signs Temperature 98.6 F 05/19/23 09:49 Pulse Rate 94 H 05/19/23 09:49 Respiratory Rate 18 05/19/23 09:49 Blood Pressure 132/83 05/19/23 09:49 Pulse Oximetry 95 05/19/23 09:49 Oxygen Delivery Method Room Air 05/19/23 09:49 <Keara Fontanez DO - Last Filed: 05/27/23 22:41> Initial Vital Signs Initial Vital Signs: Vital Signs Temperature 98.6 F 05/19/23 09:49 Pulse Rate 94 H 05/19/23 09:49 Respiratory Rate 18 05/19/23 09:49 Blood Pressure 132/83 05/19/23 09:49 Pulse Oximetry 95 05/19/23 09:49 Oxygen Delivery Method Room Air 05/19/23 09:49 Course <Taqueria Dupont PA-C - Last Filed: 05/19/23 12:17> Orders Ordered: ED Orders 05/19/23 10:00 Strep Grp A by PCR Rapid Stat Throat Culture Stat Vital Signs Vital signs: Vital Signs - 8 hr 05/19/23 09:49 Temperature 98.6 F Pulse Rate 94 H Respiratory Rate 18 Blood Pressure 132/83 Pulse Oximetry 95 Oxygen Delivery Method Room Air <Keara Fontanez DO - Last Filed: 05/27/23 22:41> Orders Ordered: ED Orders 05/19/23 10:00 Strep Grp A by PCR Rapid Stat Throat Culture Stat Vital Signs Vital signs: Vital Signs - 8 hr 05/19/23 09:49 Temperature 98.6 F Pulse Rate 94 H Respiratory Rate 18 Blood Pressure 132/83 Pulse Oximetry 95 Oxygen Delivery Method Room Air MDM - URI/Sore Throat <DEBORA Vaz Last Filed: 05/19/23 12:17> Lab Data Labs: Lab Results 05/19/23 Range/Units 10:00 Group A Strep (PCR) Negative (Negative) MDM Narrative Medical decision making narrative: 27-year-old female with past medical history GERD presents to the ED with 1 week of sore throat. Concern for viral pharyngitis versus strep pharyngitis versus COVID-19 infection versus other. Obtained strep swab which was negative. Swab also sent for culture. Findings discussed with patient. Recommend supportive care. Recommend follow-up with PCP as soon as possible. ED return precautions discussed with patient. Patient verbalized understanding. Medical records reviewed: Yes <Keara Fontanez DO - Last Filed: 05/27/23 22:41> Lab Data Labs: Lab Results 05/19/23 Range/Units 10:00 Group A Strep (PCR) Negative (Negative) Discharge Plan Departure Patient Disposition: Home Clinical Impression: Sore throat Instructions: Sore Throat, COVID-19 Activity Restrictions/Additional Instructions: You were evaluated in the ED today for sore throat. Your strep swab was negative. The sample will be sent for culture and we will notify you if it is positive. Currently it seems like his symptoms are due to a viral upper respiratory infection. It appears that you tested positive for COVID-19. It is recommended that you take Tylenol, ibuprofen, [id number] cough medicines, lozenges for symptomatic relief. Please stay well hydrated. Follow-up with your PCP as soon as possible. Return to the ED if you have worsening symptoms trouble breathing, chest pain. Prescriptions: No Action dexamethasone [Decadron] 4 mg tablet 4 mg PO BID Qty: 10 0RF docusate sodium 100 mg capsule 100 mg PO DAILY Qty: 10 0RF senna 8.6 mg capsule 8.6 mg PO DAILY PRN (Reason: constipation) Qty: 10 0RF norethindrone-e.estradiol-iron [Microgestin Fe 1.5/30 (28)] 1.5 mg-30 mcg (21) /75 mg (7) tablet 1 tab PO DAILY omeprazole 20 mg capsule,delayed release(DR/EC) 20 mg PO DAILY Qty: 30 0RF Referrals: Miscellaneous,Doctor, MD [Primary Care Provider] - Stand Alone Forms: Patient Portal/API ED Sign-out <Keara Fontanez DO - Last Filed: 05/27/23 22:41> Cosign ED Attending Keyla Attestation: I was immediately available in the department for consultation.
== END 2023-05-19 12:13 | disposition home or self-care (01) ==
PROVIDERS: Emergency Medicine; Emergency Provider Student in an Organized Health Care Education/Training Program
DX: J02.9 Acute pharyngitis, unspecified (principal)
CPT/HCPCS: 87070; 87651; 99281; 99282

== ENCOUNTER 2023-07-29 06:27 | Emergency (ER) | payer OTHER, SELFPAY ==
[2023-07-29 06:36] VITALS: BP 134/71; PULSE 68; RESP 17; TEMP 36.5; O2SAT 99; BMI 25.8
--- NOTE | 2023-07-29 06:50 | ED_ITS ---
HPI - Abdominal Pain <Pamela Jensen DO - Last Filed: 08/05/23 07:08> General Chief Complaint: Abdominal Pain Stated Complaint: abd pain Time Seen by Provider: 07/29/23 06:40 Source: patient Mode of arrival: Ambulatory History of Present Illness HPI narrative: Patient is a 28-year-old female history of chronic abdominal pain presents today with left lower quadrant pain and painful frequent urination. She reports that she had increasing pain over last 1 week. She has had intermittent nausea vomiting for the last 3 days. She is thrown up like once a day for last 3 days. She reports soft stool every time she eats. Denies any fever chills. She is also having some painful frequent urination. No flank pain. No fever. Related Data Home Medications Medication Instructions Recorded Confirmed norethindrone 1.5 mg-ethinyl 1 tab PO DAILY 09/20/21 09/20/21 estradiol 30 mcg(21)/iron 75 mg(7) tablet (Microgestin Fe 1.5/30 (28)) Previous Rx's Medication Instructions Recorded dexamethasone 4 mg tablet 4 mg PO BID #10 tabs 09/22/21 (Decadron) docusate sodium 100 mg capsule 100 mg PO DAILY #10 caps 09/22/21 sennosides 8.6 mg capsule (senna) 8.6 mg PO DAILY PRN constipation 09/22/21 #10 caps omeprazole 20 mg capsule,delayed 20 mg PO DAILY #30 caps 05/17/23 release ondansetron 4 mg disintegrating 4 mg PO Q6H PRN nausea and 07/29/23 tablet vomiting #5 tabs phenazopyridine 200 mg tablet 200 mg PO TID PRN pain 6 doses #6 07/29/23 (Pyridium) tabs Allergies Allergy/AdvReac Type Severity Reaction Status Date / Time No Known Drug Allergies Allergy Verified 05/19/23 09:53 Patient History <Pamela Jensen DO - Last Filed: 08/05/23 07:08> Medical History Tonsillar hypertrophy Tonsil stone Throat infection Enlarged tonsils Healthy adult Social History household members: friend(s) Smoking Status: Never smoker alcohol intake: current Smoking Status: Never smoker tobacco type: cigarettes alcohol intake frequency: a few times a month Substance Use Type: does not use Exam <Pamela Jensen DO - Last Filed: 08/05/23 07:08> Initial Vital Signs Initial Vital Signs: Vital Signs Temperature 97.7 F 07/29/23 06:36 Pulse Rate 68 07/29/23 06:36 Respiratory Rate 17 07/29/23 06:36 Blood Pressure 134/71 07/29/23 06:36 Pulse Oximetry 99 07/29/23 06:36 Oxygen Delivery Method Room Air 07/29/23 06:36 GENERAL: Alert 28-year-old female and in no acute distress. HEENT: Head atraumatic,EOMI, pupils reactive, face symmetric, moist mucous membranes CARDIOVASCULAR: Regular rate and rhythm without murmurs, rubs or gallops. RESPIRATORY: Breath sounds equal bilaterally, no wheezes rales or rhonchi. ABDOMEN: Soft, minimal left lower pain no guarding no rebound : No CVA tenderness EXTREMITIES: Normal range of motion, no clubbing or edema. Neurovascularly intact NEUROLOGICAL: Alert and oriented x4.Normal gait and speech. SKIN: Warm, dry, no laceration, no petechiae, no rashes or lesions. <Keara Fontanez, - Last Filed: 07/29/23 18:24> Initial Vital Signs Initial Vital Signs: Vital Signs Temperature 97.7 F 07/29/23 06:36 Pulse Rate 68 07/29/23 06:36 Respiratory Rate 17 07/29/23 06:36 Blood Pressure 134/71 07/29/23 06:36 Pulse Oximetry 99 07/29/23 06:36 Oxygen Delivery Method Room Air 07/29/23 06:36 Course <Pamela Jensen DO - Last Filed: 08/05/23 07:08> Orders Ordered: Discontinued Medications Ketorolac Tromethamine (Ketorolac 30 Mg/Ml Vial) 15 mg IV NOW ONE Stop: 07/29/23 06:49 Last Admin: 07/29/23 07:26 Dose: 15 mg Documented By: IGGY Phenazopyridine HCl (Phenazopyridine 100 Mg Tablet) 200 mg PO NOW ONE Stop: 07/29/23 09:31 Last Admin: 07/29/23 09:34 Dose: 200 mg Documented By: IGGY Vital Signs Vital signs: Vital Signs - 8 hr 07/29/23 06:36 Temperature 97.7 F Pulse Rate 68 Respiratory Rate 17 Blood Pressure 134/71 Pulse Oximetry 99 Oxygen Delivery Method Room Air <Keara Fontanez DO - Last Filed: 07/29/23 18:24> Orders Ordered: Discontinued Medications Ketorolac Tromethamine (Ketorolac 30 Mg/Ml Vial) 15 mg IV NOW ONE Stop: 07/29/23 06:49 Last Admin: 07/29/23 07:26 Dose: 15 mg Documented By: IGGY Phenazopyridine HCl (Phenazopyridine 100 Mg Tablet) 200 mg PO NOW ONE Stop: 07/29/23 09:31 Last Admin: 07/29/23 09:34 Dose: 200 mg Documented By: IGGY Vital Signs Vital signs: Vital Signs - 8 hr 07/29/23 06:36 Temperature 97.7 F Pulse Rate 68 Respiratory Rate 17 Blood Pressure 134/71 Pulse Oximetry 99 Oxygen Delivery Method Room Air MDM - Abdominal Pain <Pamela Jensen DO - Last Filed: 08/05/23 07:08> Lab Data 07/29/23 06:58 07/29/23 06:58 Labs: Lab Results 07/29/23 07/29/23 Range/Units 06:40 06:58 WBC 6.9 (4.5-11.0) X10^3/uL RBC 4.73 (4.0-5.2) X10^6/uL Hgb 14.5 (12.0-16.0) g/dL Hct 43.9 (36-46) % MCV 92.7 (80-100) fL MCH 30.7 (26-34) PG MCHC 33.1 (30-36) % RDW 13.4 (11.6-14.8) % Plt Count 273 (150-400) X10^3/uL Neut % (Auto) 61.4 (50-75) % Lymph % (Auto) 31.3 (25-40) % [place] % (Auto) 5.7 (3-14) % Eos % (Auto) 1.2 L (2-4) % Baso % (Auto) 0.4 (0-2) % Neut # (Auto) 4200 (4080-8540) /uL Lymph # (Auto) 2100 (2806-6060) /uL [place] # (Auto) 400 (0-900) /uL Eos # (Auto) 100 (0-450) /uL Baso # (Auto) 0 (0-100) /uL Sodium 137 (137-145) mmol/L Potassium 4.2 (3.4-5.1) mmol/L Chloride 104 (98-107) mmol/L Carbon Dioxide 22 (22-32) mmol/L BUN 13 (7-17) mg/dL Creatinine 0.71 (0.52-1.04) mg/dL Estimated GFR > 60 (>60) mL/min BUN/Creatinine Ratio 18.3 (6-22) Glucose 90 (70-100) mg/dL Calcium 9.4 (8.4-10.2) mg/dL Total Bilirubin 0.7 (0.2-1.3) mg/dL AST 40 H (14-36) IU/L ALT 56 H (<35) IU/L Alkaline Phosphatase 81 (38-126) U/L Total Protein 7.7 (6.3-8.2) g/dL Albumin 4.5 (3.5-5.0) g/dL Globulin 3.2 (1.7-4.1) g/dL Albumin/Globulin Ratio 1.4 (1.0-2.8) Lipase 144 (23-300) U/L Urine RBC 5-10/hpf H (0-5/HPF) Urine WBC 1-5/hpf (0-5/HPF) Ur Squamous Epith Cells 10-30 /hpf H (0-5/HPF) Urine Bacteria Moderate (10-30) H (None) Ur Culture Indicated? Specimen cultured Point of care testing: Point of Care Testing Test Results Negative Urine Dip Bedside Urine Glucose Negative Bedside Urine Bilirubin - Negative Bedside Urine Ketone - Negative Urine Specific [place] 1.030 Bedside Urine Occult Blood +/- Bedside Urine pH 6.0 Bedside Urine Protein - Negative Bedside Urine Urobilinogen - Negative Bedside Urine Nitrite - Negative Bedside Urine Leukocytes - Negative Esterase MDM Narrative Medical decision making narrative: 28-year-old female with intermittent abdominal pain presents today with some left lower quadrant pain mildly tender on exam. Also having painful frequent urination. Blood work and imaging pending. Patient signed out to Dr. Fontanez <Keara Fontanez DO - Last Filed: 07/29/23 18:24> Lab Data Labs: Lab Results 07/29/23 07/29/23 Range/Units 06:40 06:58 WBC 6.9 (4.5-11.0) X10^3/uL RBC 4.73 (4.0-5.2) X10^6/uL Hgb 14.5 (12.0-16.0) g/dL Hct 43.9 (36-46) % MCV 92.7 (80-100) fL MCH 30.7 (26-34) PG MCHC 33.1 (30-36) % RDW 13.4 (11.6-14.8) % Plt Count 273 (150-400) X10^3/uL Neut % (Auto) 61.4 (50-75) % Lymph % (Auto) 31.3 (25-40) % [place] % (Auto) 5.7 (3-14) % Eos % (Auto) 1.2 L (2-4) % Baso % (Auto) 0.4 (0-2) % Neut # (Auto) 4200 (8789-7795) /uL Lymph # (Auto) 2100 (0788-9130) /uL [place] # (Auto) 400 (0-900) /uL Eos # (Auto) 100 (0-450) /uL Baso # (Auto) 0 (0-100) /uL Sodium 137 (137-145) mmol/L Potassium 4.2 (3.4-5.1) mmol/L Chloride 104 (98-107) mmol/L Carbon Dioxide 22 (22-32) mmol/L BUN 13 (7-17) mg/dL Creatinine 0.71 (0.52-1.04) mg/dL Estimated GFR > 60 (>60) mL/min BUN/Creatinine Ratio 18.3 (6-22) Glucose 90 (70-100) mg/dL Calcium 9.4 (8.4-10.2) mg/dL Total Bilirubin 0.7 (0.2-1.3) mg/dL AST 40 H (14-36) IU/L ALT 56 H (<35) IU/L Alkaline Phosphatase 81 (38-126) U/L Total Protein 7.7 (6.3-8.2) g/dL Albumin 4.5 (3.5-5.0) g/dL Globulin 3.2 (1.7-4.1) g/dL Albumin/Globulin Ratio 1.4 (1.0-2.8) Lipase 144 (23-300) U/L Urine RBC 5-10/hpf H (0-5/HPF) Urine WBC 1-5/hpf (0-5/HPF) Ur Squamous Epith Cells 10-30 /hpf H (0-5/HPF) Urine Bacteria Moderate (10-30) H (None) Ur Culture Indicated? Specimen cultured Point of care testing: Point of Care Testing Test Results Negative Urine Dip Bedside Urine Glucose Negative Bedside Urine Bilirubin - Negative Bedside Urine Ketone - Negative Urine Specific [place] 1.030 Bedside Urine Occult Blood +/- Bedside Urine pH 6.0 Bedside Urine Protein - Negative Bedside Urine Urobilinogen - Negative Bedside Urine Nitrite - Negative Bedside Urine Leukocytes - Negative Esterase Imaging Data pelvic US: Radiologist's Impression: Close Pelvis Ultrasound (Signed) RoseyGely - 07/29/23 Launch?Image [address] [address] Ultrasound Report Signed Patient: Katya Huggins MR#: [id number] : 1995 Acct:[id number] Age/Sex: 28 / F Date of Service: 07/29/23 Loc: ED Accession Number: [id number] Procedure: US pelvic complete Ordering Provider: Pamela Jensen D.O. PROCEDURE: US PELVIC COMPLETE INDICATIONS: LEFT LOWER QUADRANT PAIN. VOMITING AND DIARRHEA. HISTORY OF CYSTS. LMP 07/10/23. CONTROL PILLS. TECHNIQUE: Real-time scanning was performed of the pelvic organs, with image documentation. Additional endovaginal scanning was necessary due to incomplete visualization of the adnexal and endometrial structures by transabdominal scanning. COMPARISON: [facility], US PELVIC COMPLETE, 08/07/2021, 14:49. [facility], US, US ABDOMEN LIMITED, 04/30/2023, 14:02. FINDINGS: Uterus: Uterus is anteverted and normal in size at 7.0 x 4.0 x 2.9 cm. The myometrium is homogeneous. The endometrium measures 2.6 mm combined thickness. Ovaries: The right ovary measures 2.8 x 2.0 x 1.0 cm, with a calculated ovarian volume of 2.9 cc. The left ovary measures 2.8 x 1.1 x 1.3 cm, with a calculated ovarian volume of 2.0 cc. The ovaries have a normal sonographic appearance. Less than 12 follicles can be seen in each ovary. No adnexal masses are seen. Doppler flow is identified to the ovaries bilaterally. Other: No pathologic free abdominal or pelvic fluid. IMPRESSION: Unremarkable exam. We strive to produce accurate, complete, and clear reports of imaging services. To assist us in improving patient care, this report was composed using standard report templates and voice recognition software. Therefore, it may contain abnormal punctuation, insertions and/or omissions. Occasional wrong-word or sound-alike substitutions may occur. Though we review the report and make efforts to correct it, we do recommend that the report be read carefully in proper context to recognize any text inaccuracies. Dictated by: Gely Currie M.D. on 07/29/2023 at 9:02 Approved by: Gely Currie M.D. on 07/29/2023 at 9:03 [facility] Narrative Medical decision making narrative: 28-year-old female with intermittent abdominal pain presents today with some left lower quadrant pain mildly tender on exam. Also having painful frequent urination. Blood work and imaging pending. Patient signed out to Dr. Fontanez. 07/29/23 Michaelk: Patient seen and evaluated by myself. Patient has had some chronic abdominal pain had vomiting once daily x3 days and some mild diarrhea. States she has had cysts in the past she also notes dysuria and frequency. Patient states she suspects little bit of a UTI but has had ovarian cyst as well. Labs including CBC, CMP show AST of 40 and ALT of 56 but normal bilirubin and lipase, urine shows 5-10 red cells, 1-5 white cells, 10-30 squamous, moderate bacteria was cultured. Patient does have some clinical symptoms of UTI. After discussion we will cover with Pyridium, antibiotic and a few tablets of antinausea medicine. She denies any back or flank pain. She did have pelvic ultrasound which shows no acute changes. Discussed with patient she feels comfortable with this plan, she does request work note. Reviewed return precautions. Discharge Plan Departure Patient Disposition: Home Clinical Impression: UTI (urinary tract infection), Abdominal pain Activity Restrictions/Additional Instructions: Please follow-up if your symptoms are persisting. You may take Tylenol up to a 1000 mg every 6 hours and/or ibuprofen up to 600 mg every 6 hours as needed for pain. You can take Zofran 1 tablet every 6 hours as needed for nausea. Take antibiotics until completed. Needed you can take Pyridium 1 tablet every 6 hours as needed for bladder spasm and irritation. This medication will make your urine orange. Prescription sent to [facility] in [place]. Please return for fevers, new or worsening abdominal back or flank pain, persistent vomiting, black or bloody stools, inability urinate or other new or concerning changes. Prescriptions: New ondansetron 4 mg tablet,disintegrating 4 mg PO Q6H PRN (Reason: nausea and vomiting) Qty: 5 0RF phenazopyridine [Pyridium] 200 mg tablet 200 mg PO TID PRN (Reason: pain) Qty: 6 0RF No Action dexamethasone [Decadron] 4 mg tablet 4 mg PO BID Qty: 10 0RF docusate sodium 100 mg capsule 100 mg PO DAILY Qty: 10 0RF senna 8.6 mg capsule 8.6 mg PO DAILY PRN (Reason: constipation) Qty: 10 0RF norethindrone-e.estradiol-iron [Microgestin Fe 1.5/30 (28)] 1.5 mg-30 mcg (21)/75 mg (7) tablet 1 tab PO DAILY omeprazole 20 mg capsule,delayed release(DR/EC) 20 mg PO DAILY Qty: 30 0RF Referrals: Miscellaneous,Doctor, MD [Primary Care Provider] - Stand Alone Forms: Patient Portal/API, Work Release Note
[2023-07-29 07:00] LABS: Bacteria Urine Moderate (10-30); Culture Indicated Urine Specimen Cultured; RBC Urine 5-10/HPF (0-5/HPF); Squamous Epithelial Cell Urine 10-30 /HPF (0-5/HPF); WBC Urine 1-5/HPF (0-5/HPF)
[2023-07-29 07:08] LABS: Add Manual Diff / Slide Review NO; Basophils Absolute Auto 0 /uL (0-100); Basophils Percent Auto 0.4 % (0-2); Eosinophils Absolute Auto 100 /uL (0-450); Eosinophils Percent Auto 1.2 % (2-4); Hematocrit 43.9 % (36-46); Hemoglobin 14.5 g/dL (12.0-16.0); Lymphocytes Absolute Auto 2100 /uL (1100-4500); Lymphocytes Percent Auto 31.3 % (25-40); Mean Corpuscular HGB Conc 33.1 % (30-36); Mean Corpuscular Hemoglobin 30.7 PG (26-34); Mean Corpuscular Volume 92.7 fL (80-100); Monocytes Absolute Auto 400 /uL (0-900); Monocytes Percent Auto 5.7 % (3-14); Neutrophils Absolute Auto 4200 /uL (1500-7000); Neutrophils Percent Auto 61.4 % (50-75); Platelet Count 273 X10^3/uL (150-400); Red Blood Cell Count 4.73 X10^6/uL (4.0-5.2); Red Cell Distribution Width 13.4 % (11.6-14.8); White Blood Cell Count 6.9 X10^3/uL (4.5-11.0)
[2023-07-29 07:18] LABS: Alanine Aminotransferase 56 IU/L (<35); Albumin 4.5 g/dL (3.5-5.0); Albumin Globulin Ratio 1.4 (1.0-2.8); Alkaline Phosphatase 81 U/L (38-126); Aspartate Aminotransferase 40 IU/L (14-36); BUN Creatinine Ratio 18.3 (6-22); Bilirubin Total 0.7 mg/dL (0.2-1.3); Blood Urea Nitrogen 13 mg/dL (7-17); Calcium 9.4 mg/dL (8.4-10.2); Carbon Dioxide 22 mmol/L (22-32); Chloride 104 mmol/L (98-107); Estimated Glomerular Filt Rate > 60 mL/min (>60); Globulin 3.2 g/dL (1.7-4.1); Glucose 90 mg/dL (70-100); HEMOLYSIS < 15 (0-50); Lipase 144 U/L (23-300); Potassium 4.2 mmol/L (3.4-5.1); Sodium 137 mmol/L (137-145); Total Protein 7.7 g/dL (6.3-8.2)
[2023-07-29] MEDS: KETOROLAC 30 MG/ML VIAL 15 MG IV (07:26)
[2023-07-29 09:06] VITALS: BP 116/61; PULSE 65; O2SAT 98
[2023-07-29] MEDS: PHENAZOPYRIDINE 100 MG TABLET 200 MG PO (09:34)
== END 2023-07-29 09:54 | disposition home or self-care (01) ==
PROVIDERS: Emergency Medicine; Emergency Provider Emergency Medicine
DX: N39.0 Urinary tract infection, site not specified (principal); R10.32 Left lower quadrant pain; R11.2 Nausea with vomiting, unspecified
CPT/HCPCS: 36415; 76830; 76856; 80053; 81003; 81015; 81025; 83690; 85025; 87086; 93975; 96374; 99284; J1885

== ENCOUNTER → 2023-08-21 09:40 | Outpatient (CLI) | payer OTHER, SELFPAY ==
[2023-08-21 11:26] LABS: Alanine Aminotransferase 29 IU/L (<35); Albumin 4.8 g/dL (3.5-5.0); Albumin Globulin Ratio 1.5 (1.0-2.8); Alkaline Phosphatase 72 U/L (38-126); Aspartate Aminotransferase 30 IU/L (14-36); Bilirubin Total 0.7 mg/dL (0.2-1.3); Bilirubin Unconjugated 0.4 mg/dL (0.0-1.1); Globulin 3.3 g/dL (1.7-4.1); HEMOLYSIS < 15 (0-50); Lipase 102 U/L (23-300); Total Protein 8.1 g/dL (6.3-8.2)
[2023-08-21 13:25] LABS: Adenovirus F 40/41 Not Detected (Not Detect); Astrovirus Not Detected (Not Detect); Campylobacter Not Detected (Not Detect); Clostridium difficile toxin AB Not Detected (Not Detect); Cryptosporidium Not Detected (Not Detect); Cyclospora cayetanensis Not Detected (Not Detect); Entamoeba histolytica Not Detected (Not Detect); Enteroaggregative E.coli Not Detected (Not Detect); Enteropathogenic E.coli Not Detected (Not Detect); Enterotoxigenic E.coli It/st Not Detected (Not Detect); Giardia lamblia Not Detected (Not Detect); Norovirus GI/GII Not Detected (Not Detect); Plesiomonsa shigelloides Not Detected (Not Detect); Rotavirus A Not Detected (Not Detect); Salmonella Not Detected (Not Detect); Sapovirus Not Detected (Not Detect); Shiga-like toxin-prod E.coli Not Detected (Not Detect); Shigella/Enteroinvasive E.coli Not Detected (Not Detect); Vibrio Not Detected (Not Detect); Vibrio cholerae Not Detected (Not Detect); Yersinia enterocolitica Not Detected (Not Detect)
== END ==
LOC: LAB 09:41
PROVIDERS: Referring Provider Internal Medicine Gastroenterology; Visit Provider Internal Medicine Gastroenterology
DX: R19.7 Diarrhea, unspecified (principal); R79.89 Other specified abnormal findings of blood chemistry
CPT/HCPCS: 36415; 80076; 83690; 87507

== ENCOUNTER 2023-10-20 07:51 | Day surgery (SDC) | payer OTHER, SELFPAY ==
--- NOTE | 2023-10-20 | PATH_ITS ---
[facility] Accession Number: [id number] No. of containers..01 Tissue . 01 Material submitted: . colon - RANDOM COLON . 01 Diagnosis: RANDOM COLON: Colonic mucosa with no diagnostic alterations. No active inflammation, granulomas, dysplasia, or malignancy identified. No evidence of colitis. [facility] 10/23/20235 Local . 01 Electronically signed: . Tommy Roberts MD, Pathologist NPI- [id number] . 01 Gross description: . RANDOM COLON: Received in formalin are 2 fragment(s) of askew, soft tissue measuring 0.1 x 0.1 x 0.1 cm to 0.2 x 0.2 x 0.2 cm submitted entirely in 1 cassette(s) /HILDA 10/23/20231054 Local . 01 Pathologist provided ICD-10: R19.7 . 01 CPT . 205277 Specimen Comment: A courtesy copy of this report has been sent to [phone] Performed at: 01 [facility] [address] [place] [address], [place], [place] [id number] MD Tommy Roberts MD Phone: [phone]
[2023-10-20 08:15] VITALS: BP 134/80; PULSE 83; RESP 16; TEMP 36.4; O2SAT 98
--- NOTE | 2023-10-20 08:35 | P.HP_ITS ---
History of Present Illness History of Present Illness Date Patient Seen: 10/20/23 Chief complaint: Dx Colonoscopy Narrative: Lower abdominal symptoms including change in bowel movement and loose stools rule out Crohn's disease [facility] Medical History Tonsillar hypertrophy Tonsil stone Throat infection Enlarged tonsils Healthy adult Social History household members: friend(s) Smoking Status: Never smoker alcohol intake: current Meds Home Medications and Allergies Home Medications Medication Instructions Recorded Confirmed Type norethindrone 1.5 mg-ethinyl 1 tab PO DAILY 09/20/21 09/20/21 History estradiol 30 mcg(21)/iron 75 mg(7) tablet (Microgestin Fe 1.5/30 (28)) dexamethasone 4 mg tablet 4 mg PO BID #10 tabs 09/22/21 Rx (Decadron) docusate sodium 100 mg capsule 100 mg PO DAILY #10 caps 09/22/21 Rx sennosides 8.6 mg capsule (senna) 8.6 mg PO DAILY PRN constipation 09/22/21 Rx #10 caps omeprazole 20 mg capsule,delayed 20 mg PO DAILY #30 caps 05/17/23 Rx release ondansetron 4 mg disintegrating 4 mg PO Q6H PRN nausea and 07/29/23 Rx tablet vomiting #5 tabs phenazopyridine 200 mg tablet 200 mg PO TID PRN pain 6 doses #6 07/29/23 Rx (Pyridium) tabs Allergies Allergy/AdvReac Type Severity Reaction Status Date / Time No Known Drug Allergies Allergy Verified 05/19/23 09:53 Exam Vital Signs (past 8 hours): - 10/20/23 08:15 Temperature 97.6 F Pulse Rate 83 Respiratory Rate 16 Blood Pressure 134/80 Pulse Oximetry 98 Oxygen Delivery Method Room Air Oxygen Delivery Method Room Air Narrative Exam Narrative: Oropharynx free of lesions Chest clear to auscultation percussion Cardiac exam reveals no S3 or murmur Objective ECG Impression: Change in bowel movements and lower tract symptoms rule out Crohn's disease. Risks, benefits, alternatives to colonoscopy have been discussed.
--- NOTE | 2023-10-20 08:36 | PM.OP.COLON ---
Operative Date/Time/Diagnoses Date of procedure: 10/20/23 Pre-op diagnosis: See indication and findings Procedure & Clinicians Study performed: Colonoscopy Indications: Change in bowel movements rule out Crohn's disease Surgeon: John Ewing Procedure Notes Procedure in detail: After informed consent was obtained the patient was placed in left lateral decubitus position. The video colonoscope was introduced the rectum slowly advanced to cecum. Preparation was good. On slow withdrawal mucosa was carefully examined. The scope was removed. The patient tolerated procedure well. Blood loss none Complications none Sedation mac Findings 1. Normal colonoscopy to cecum. Random biopsies taken to rule out microscopic colitis 2. Multiple attempts made to try to intubate the IC valve. Of very sharp angulation did not permit this. Will be in touch with Katya regarding her biopsies. We will be discussing other causes of her food intolerances.
[2023-10-20] MEDS: LACTATED RINGERS 1,000 ML 42 ML IV (08:37)
[2023-10-20 09:40] VITALS: BP 95/61; PULSE 89; RESP 15; TEMP 36.6; O2SAT 97
[2023-10-20 09:45] VITALS: BP 108/64; PULSE 80; RESP 18; O2SAT 97
[2023-10-20 09:50] VITALS: BP 99/70; PULSE 69; RESP 12; O2SAT 100
[2023-10-20 10:00] VITALS: BP 106/73; PULSE 64; RESP 16; O2SAT 100
[2023-10-20 10:11] VITALS: BP 121/67; PULSE 67; RESP 16; O2SAT 99
== END 2023-10-20 10:20 | disposition home or self-care (01) ==
PROVIDERS: Referring Provider Internal Medicine Gastroenterology; Visit Provider Internal Medicine Gastroenterology
PROC: 0DJD8ZZ Inspection of Lower Intestinal Tract, Via Natural or Artificial Opening Endoscopic (ICD-10-PCS; CPT 45378; principal; 2023-10-20 09:00)
DX: R19.4 Change in bowel habit (principal)
CPT/HCPCS: 45380; J2704

== ENCOUNTER 2023-11-04 08:00 | Emergency (ER) | payer OTHER, SELFPAY ==
[2023-11-04 08:08] VITALS: BP 132/83; PULSE 82; RESP 18; TEMP 36.6; O2SAT 98; BMI 26.2
[2023-11-04 08:31] LABS: Urine Volume 10mL (spun)
[2023-11-04 08:32] LABS: Pregnancy Test Urine Negative (Negative)
[2023-11-04 08:33] LABS: Bacteria Urine Moderate (10-30); Culture Indicated Urine Specimen Cultured; RBC Urine 1-5/HPF (0-5/HPF); Squamous Epithelial Cell Urine 1-5 /HPF (0-5/HPF); WBC Urine 5-10/HPF (0-5/HPF)
--- NOTE | 2023-11-04 09:03 | ED_ITS ---
HPI - General Adult General Chief complaint: Urogenital-Female Stated complaint: possible uti t-3 Time Seen by Provider: 11/04/23 08:32 Source: patient Mode of arrival: Family Vehicle History of Present Illness HPI narrative: 28-year-old woman with episodes of abdominal pain recent colonoscopy with workup for Crohn's disease apparently the colonoscopy went well. She was feeling well until 3 days ago when she started noticing some mild dysuria. No overt hematuria. She is some minor suprapubic tenderness but no fevers or flank pain. She has not complaining of vaginal discharge or disorder. No other abdominal pain, nausea, vomiting or diarrhea are appreciated Related Data Previous Rx's Medication Instructions Recorded sennosides 8.6 mg capsule (senna) 8.6 mg PO DAILY PRN constipation 09/22/21 #10 caps omeprazole 20 mg capsule,delayed 20 mg PO DAILY #30 caps 05/17/23 release ondansetron 4 mg disintegrating 4 mg PO Q6H PRN nausea and 07/29/23 tablet vomiting #5 tabs phenazopyridine 200 mg tablet 200 mg PO TID PRN pain 6 doses #6 07/29/23 (Pyridium) tabs cephalexin 500 mg capsule 500 mg PO TID #15 caps 11/04/23 phenazopyridine 200 mg tablet 200 mg PO TID 6 doses #6 tabs 11/04/23 (Pyridium) Allergies Allergy/AdvReac Type Severity Reaction Status Date / Time No Known Drug Allergies Allergy Verified 11/04/23 08:11 Review of Systems Review of Systems Narrative: Pertinent positive and negative findings as per HPI Patient History Medical History Tonsillar hypertrophy Tonsil stone Throat infection Enlarged tonsils Healthy adult Social History household members: friend(s) Smoking Status: Former smoker alcohol intake: current Smoking Status: Former smoker tobacco type: cigarettes and vaping alcohol intake frequency: a few times a month Substance Use Type: does not use Exam Initial Vital Signs Initial Vital Signs: Vital Signs Temperature 97.9 F 11/04/23 08:08 Pulse Rate 82 11/04/23 08:08 Respiratory Rate 18 11/04/23 08:08 Blood Pressure 132/83 11/04/23 08:08 Pulse Oximetry 98 11/04/23 08:08 Oxygen Delivery Method Room Air 11/04/23 08:08 General: Alert appropriate in no acute distress Respiratory: Able to speak in full sentences, no obvious respiratory distress Abdomen: Mild suprapubic tenderness, no flank pain, abdomen is otherwise completely unremarkable Skin: No obvious rashes, warm and dry Neurologic: Grossly intact no obvious asymmetries or abnormalities Psych: appropriate insight and affect, cooperative Course Orders Ordered: ED Orders 11/04/23 08:19 Test Urine Stat Urine Culture Stat Urine Microscopic Stat 11/04/23 08:55 Urine Microscopic Stat Ondansetron HCl (Ondansetron 4 Mg Odt) 4 mg SL NOW PRN PRN Reason: Nausea And Vomiting Ondansetron HCl (Ondansetron 4 Mg/2 Ml Inj) 4 mg IV NOW PRN PRN Reason: Nausea And Vomiting Vital Signs Vital signs: Vital Signs - 8 hr 11/04/23 08:08 Temperature 97.9 F Pulse Rate 82 Respiratory Rate 18 Blood Pressure 132/83 Pulse Oximetry 98 Oxygen Delivery Method Room Air Medical Decision Making Lab Data Labs: Lab Results 11/04/23 Range/Units 08:19 Urine RBC 1-5/hpf (0-5/HPF) Urine WBC 5-10/hpf H (0-5/HPF) Ur Squamous Epith Cells 1-5 /hpf D (0-5/HPF) Urine Bacteria Moderate (10-30) H (None) Ur Culture Indicated? Specimen cultured Vol Urine Centrifuged 10ml (spun) Urine Test Negative (Negative) Urine Dip Bedside Urine Glucose Negative Bedside Urine Bilirubin - Negative Bedside Urine Ketone - Negative Urine Specific [place] 1.015 Bedside Urine Occult Blood ++ Bedside Urine pH 7.0 Bedside Urine Protein - Negative Bedside Urine Urobilinogen - Negative Bedside Urine Nitrite - Negative Bedside Urine Leukocytes ++ 125 Esterase Point of care testing: Urine Dip Bedside Urine Glucose Negative Bedside Urine Bilirubin - Negative Bedside Urine Ketone - Negative Urine Specific [place] 1.015 Bedside Urine Occult Blood ++ Bedside Urine pH 7.0 Bedside Urine Protein - Negative Bedside Urine Urobilinogen - Negative Bedside Urine Nitrite - Negative Bedside Urine Leukocytes ++ 125 Esterase MDM Narrative Medical decision making narrative: CC: Dysuria for 3 days Complicating co-morbidities: Chronic abdominal pain with workup for Crohn's disease Data collected from: patient Social determinants of health that may influence the patients condition: 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 She has minor suprapubic tenderness. Remainder of exam is entirely benign Lab Test results independently reviewed as above. Pertinent findings: Urinalysis has white cells and moderate bacteria, it will be cultured Treatments: Based on urine culture from 07/11/2020 which showed E coli that was resistant to Septra sensitive to everything else, we will start her on Kefzol with 1st dose given today in the emergency department Discussion: Otherwise healthy 28-year-old woman with 3 days of dysuria no suprapubic tenderness, no additional systemic symptoms to suggest sepsis or pyelonephritis. History does not suggest sexually we did infection or pelvic inflammatory disease. Urine is consistent with urinary tract infection. She will be treated with Keflex for 5 days as symptoms have been ongoing for 3 days. We will give her a work note for today as well as brief course of Pyridium. Questions are answered she is safe for discharge Discharge Plan Departure Patient Disposition: Home Clinical Impression: Urinary tract infection Qualifiers: Urinary tract infection type: acute cystitis Hematuria presence: without hematuria Qualified Code(s): N30.00 - Acute cystitis without hematuria Instructions: DI for Urinary Tract Infection (UTI) Activity Restrictions/Additional Instructions: Thank you for coming in today Your urine sample very much looks like a simple bladder infection. Based on a urine infection you had in 2019, I am going to choose Keflex as the antibiotic to treat you. The urine culture from today will be done and if it shows that we need to change antibiotics we will give you a call. You are given the 1st dose of Keflex in the emergency department today. Prescription for Keflex as well as Pyridium to help with the burning sensation is electronically transmitted to [facility] in [place] for you If you find that you are getting worse or develop any new symptoms, please feel free to return to the emergency department for further evaluation. Prescriptions: New cephalexin 500 mg capsule 500 mg PO TID Qty: 15 0RF phenazopyridine [Pyridium] 200 mg tablet 200 mg PO TID Qty: 6 0RF No Action senna 8.6 mg capsule 8.6 mg PO DAILY PRN (Reason: constipation) Qty: 10 0RF ondansetron 4 mg tablet,disintegrating 4 mg PO Q6H PRN (Reason: nausea and vomiting) Qty: 5 0RF phenazopyridine [Pyridium] 200 mg tablet 200 mg PO TID PRN (Reason: pain) Qty: 6 0RF omeprazole 20 mg capsule,delayed release(DR/EC) 20 mg PO DAILY Qty: 30 0RF Referrals: ProviderKobe [Primary Care Provider] - Stand Alone Forms: Patient Portal/API
[2023-11-04 09:28] VITALS: BP 123/89; PULSE 69; RESP 16; O2SAT 99
[2023-11-04] MEDS: cephALEXin 250 MG CAPSULE 500 MG PO (09:29)
== END 2023-11-04 09:43 | disposition home or self-care (01) ==
PROVIDERS: Emergency Provider Emergency Medicine
DX: N30.00 Acute cystitis without hematuria (principal)
CPT/HCPCS: 81003; 81015; 81025; 87077; 87086; 87186; 99283